=== PATIENT | male | born 1995 | race Caucasian/White ===

== ENCOUNTER 2021-09-28 18:57 | Emergency (ER) | payer MEDICARE, MEDICAID, SELFPAY ==
[2021-09-28 19:08] VITALS: BP 119/71; PULSE 108; RESP 18; TEMP 37.2; O2SAT 99; BMI 22.0
--- NOTE | 2021-09-28 19:28 | ED_ITS ---
HPI - Psych General Chief Complaint: Psychiatric Symptoms Stated Complaint: crisis Time Seen by Provider: 09/28/21 19:17 Source: patient Limitations: altered mental status (Intoxication) History of Present Illness HPI Narrative: This is a 26-year-old male who reports wanting to kill himself. Patient admits alcohol use. The patient will not disclose any specific plan. History is limited due to the patient's intoxication and lack of cooperation. Psychiatric staff stated that the patient reported that he was suicidal because he could not see his boyfriend. Related Data Home Medications Medication Instructions Recorded Confirmed bupropion HCl 150 mg 24 hr tablet, 150 mg PO QAM 09/28/21 extended release (Wellbutrin XL) hydroxyzine HCl 10 mg tablet 10 mg PO TID PRN 09/28/21 Allergies Allergy/AdvReac Type Severity Reaction Status Date / Time latex Allergy Mild rash, hives Verified 09/28/21 15:36 Review of Systems Constitutional: Constitutional: Denies fatigue and Denies fever(s) Cardiovascular: Cardiovascular: Reports no additional cardiovascular complaints Respiratory: Respiratory: Reports no additional respiratory complaints Gastrointestinal: Gastrointestinal: Reports no additional gastrointestinal complaints Psychiatric: Psychiatric: Reports suicidal ideation Endocrine: Endocrine: Denies fatigue PMFSH Social History Social History Patient Tobacco Use Status: Current everyday Tobacco user Advance Directives: No Advance Directives Information Provided: No Physical Exam Vital Signs: Vital Signs: Last Vital Signs Temp 98.9 F 09/28/21 19:08 Pulse 108 H 09/28/21 19:08 Resp 18 09/28/21 19:08 BP 119/71 09/28/21 19:08 Pulse Ox 99 09/28/21 19:08 Body Mass Index 22.0 Const: Other: Patient walked out of the room when I was about to enter, [facility] direct eye contact and dancing, waving 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 Patient does not give reliable answers to questions due to his level of intoxication. General: healthy appearing HENMT: Head: Yes normal to inspection Ears: hearing grossly normal bilaterally General nose exam: Normal external nose present Eyes: General: appearance normal, both eyes and all related structures Resp: Effort & Inspection: normal respiratory effort and able to speak in complete sentences Auscultation: clear to auscultation bilaterally Cardio: Rate: regular rate Rhythm: regular rhythm Heart sounds: S1 normal heart sound present and S2 normal heart sound present Psych: Appearance: grossly normal (Long hair, effeminate/transgender appearance) Speech and movement: Normal speech and movement present Affect: Animated affect present, Hostile affect present and Ecstatic affect present MDM - Psych MDM Narrative Medical decision making narrative: Patient with alcohol intoxication, reported suicidal ideation. Patient is expansive, dancing in gesticulating, needs re- evaluation when he is sober. Patient is being signed out to Dr. Corrine Thompson at change of shift Lab Data Result diagrams: 09/28/21 19:31 09/28/21 19:31 Labs: Lab Results 09/28/21 09/28/21 09/28/21 Range/Units 19:19 19:24 19:31 WBC (4.8-10.8) X10*3/uL RBC (4.60-5.80) X10*6/uL Hgb (14.0-18.0) g/dl Hct (42.0-52.0) % MCV (80.0-98.0) fL MCH (27.0-33.0) pg MCHC (31.0-36.0) g/dl RDW (11.0-16.0) % Plt Count (160-400) X10*3/uL MPV (9.4-12.4) fL Immature Gran % (Auto) (0.0-0.4) % Neut % (Auto) (45-73) % Lymph % (Auto) (20-40) % [place] % (Auto) (2-11) % Eos % (Auto) (0-4) % Baso % (Auto) (0-2) % Lymph # (Auto) (1.2-4.9) X10*3/uL [place] # (Auto) (0.1-1.2) X10*3/uL Eos # (Auto) (0.0-0.4) X10*3/uL Baso # (Auto) (0.0-0.2) X10*3/uL Abs Immat Gran (auto) (0.00-0.03) X10*3/uL Absolute Neuts (auto) (2.0-8.3) x10*3/uL Absolute Nucleated RBC (0.0-0.012) X10*3/uL Nucleated RBC % (auto) (0.0-0.2) /100WBC Sodium 145 (135-145) mmol/L Potassium 4.2 (3.3-5.1) mmol/L Chloride 110 H (96-108) mmol/L Carbon Dioxide 25 (22-29) mmol/L Anion Gap 14 (12-20) BUN 8 L (9-16) mg/dL Creatinine 0.86 (0.5-1.4) mg/dL Estim Creat Clear Calc 121.0 Estimated GFR > 60 Random Glucose 88 (60-115) mg/dL Calcium 9.5 (8.4-10.2) mg/dL Urine Opiates Screen Not Detected (Not Detect) Urine Fentanyl Screen Not Detected (Not Detect) Ur Barbiturates Screen Not Detected (Not Detect) Ur Phencyclidine Scrn Not Detected (Not Detect) Ur Amphetamines Screen Not Detected (Not Detect) U Benzodiazepines Scrn Not Detected (Not Detect) Urine Cocaine Screen Not Detected (Not Detect) U Marijuana (THC) Screen Not Detected (Not Detect) Ethyl Alcohol mg/dL COVID-19 ([facility]TA) Negative (Negative) COVID-19 Clin Com See Note 09/28/21 09/28/21 Range/Units 19:31 19:31 WBC 7.3 (4.8-10.8) X10*3/uL RBC 4.94 (4.60-5.80) X10*6/uL Hgb 15.0 (14.0-18.0) g/dl Hct 44.0 (42.0-52.0) % MCV 89.1 (80.0-98.0) fL MCH 30.4 (27.0-33.0) pg MCHC 34.1 (31.0-36.0) g/dl RDW 14.2 (11.0-16.0) % Plt Count 308 (160-400) X10*3/uL MPV 10.4 (9.4-12.4) fL Immature Gran % (Auto) 0.4 (0.0-0.4) % Neut % (Auto) 57.3 (45-73) % Lymph % (Auto) 34.9 (20-40) % [place] % (Auto) 6.0 (2-11) % Eos % (Auto) 1.0 (0-4) % Baso % (Auto) 0.4 (0-2) % Lymph # (Auto) 2.6 (1.2-4.9) X10*3/uL [place] # (Auto) 0.4 (0.1-1.2) X10*3/uL Eos # (Auto) 0.1 (0.0-0.4) X10*3/uL Baso # (Auto) 0.0 (0.0-0.2) X10*3/uL Abs Immat Gran (auto) 0.03 (0.00-0.03) X10*3/uL Absolute Neuts (auto) 4.2 (2.0-8.3) x10*3/uL Absolute Nucleated RBC 0.000 (0.0-0.012) X10*3/uL Nucleated RBC % (auto) 0.0 (0.0-0.2) /100WBC Sodium (135-145) mmol/L Potassium (3.3-5.1) mmol/L Chloride (96-108) mmol/L Carbon Dioxide (22-29) mmol/L Anion Gap (12-20) BUN (9-16) mg/dL Creatinine (0.5-1.4) mg/dL Estim Creat Clear Calc Estimated GFR Random Glucose (60-115) mg/dL Calcium (8.4-10.2) mg/dL Urine Opiates Screen (Not Detect) Urine Fentanyl Screen (Not Detect) Ur Barbiturates Screen (Not Detect) Ur Phencyclidine Scrn (Not Detect) Ur Amphetamines Screen (Not Detect) U Benzodiazepines Scrn (Not Detect) Urine Cocaine Screen (Not Detect) U Marijuana (THC) Screen (Not Detect) Ethyl Alcohol 221 mg/dL COVID-19 ([facility]TA) (Negative) COVID-19 Clin Com Discharge Plan Discharge Clinical Impression: Alcohol intoxication, Suicidal ideation Patient Disposition: Still a Patient Prescriptions: No Action bupropion HCl [Wellbutrin XL] 150 mg tablet extended release 24 hr 150 mg PO QAM RF: 0 hydroxyzine HCl 10 mg tablet 10 mg PO TID PRNRF: 0
[2021-09-28 19:37] LABS: MANUAL DIFF FLAG NO
[2021-09-28 19:49] LABS: Ethanol 221 mg/dL
[2021-09-28 19:50] LABS: Anion Gap 14 (12-20); Basophils Percent Auto 0.4 % (0-2); Blood Urea Nitrogen 8 mg/dL (9-16); Calcium 9.5 mg/dL (8.4-10.2); Carbon Dioxide 25 mmol/L (22-29); Chloride 110 mmol/L (96-108); Eosinophils Absolute Auto 0.1 X10*3/uL (0.0-0.4); Estimated Glomerular Filt Rate > 60; Glucose Random 88 mg/dL (60-115); Imm Gran Abs Auto 0.03 X10*3/uL (0.00-0.03); Imm Gran Pct Auto 0.4 % (0.0-0.4); Lymphocytes Absolute Auto 2.6 X10*3/uL (1.2-4.9); Lymphocytes Percent Auto 34.9 % (20-40); Mean Corpuscular HGB Conc 34.1 g/dl (31.0-36.0); Mean Corpuscular Hemoglobin 30.4 pg (27.0-33.0); Mean Corpuscular Volume 89.1 fL (80.0-98.0); Mean Platelet Volume 10.4 fL (9.4-12.4); Monocytes Absolute Auto 0.4 X10*3/uL (0.1-1.2); Neutrophils Absolute Auto 4.2 x10*3/uL (2.0-8.3); Neutrophils Percent Auto 57.3 % (45-73); Platelet Count 308 X10*3/uL (160-400); Potassium 4.2 mmol/L (3.3-5.1); Red Blood Count 4.94 X10*6/uL (4.60-5.80); Red Cell Distribution Width 14.2 % (11.0-16.0); Sodium 145 mmol/L (135-145); White Blood Count 7.3 X10*3/uL (4.8-10.8)
[2021-09-28 19:55] LABS: COVID-19 Test Negative (Negative)
[2021-09-28 20:08] LABS: Amphetamine Screen Urine Not Detected (Not Detect); Barbiturates, Urine Not Detected (Not Detect); Benzodiazepines Screen Urine Not Detected (Not Detect); Cannabinoid Screen Urine Not Detected (Not Detect); Cocaine Screen Urine Not Detected (Not Detect); Fentanyl, urine Not Detected (Not Detect); Opiate Screen Urine Not Detected (Not Detect); Phencyclidine Screen Urine Not Detected (Not Detect)
--- NOTE | 2021-09-29 00:52 | PC.NURSE ---
[facility] referral completed/confirmed, patient will be evaluated in the morning, patient is in bed appears sleeping, no distress observed/reported, will continue to monitor.
--- NOTE | 2021-09-29 06:17 | PC.NURSE ---
Patient slept through the night, patient was up x 2 for bathroom use and back, patient reported he cant remember how he got into ambulance, stated, I drank a lot , patient was informed that he will be seeing N crises clinician in the morning due to suicidal statement he made to EMS, VSS, will continue to monitor.
[2021-09-29 06:49] VITALS: BP 121/68; PULSE 69; RESP 16; TEMP 36.8; O2SAT 98
--- NOTE | 2021-09-29 07:49 | PC.NURSE ---
pt seen [facility] this morning, denies SI/HI to nurse, currently complaining of mouth abscess, upon investigation by nurse no signs of abscess, will inform MD and continue to monitor
[2021-09-29] MEDS: Penicillin V Potassium 250 MG TABLET 500 MG PO ×4 (09:29→22:19)
[2021-09-29 10:05] LABS: Ethanol < 10 mg/dL
[2021-09-29 10:52] VITALS: BP 130/65; PULSE 70; TEMP 36.7; O2SAT 98
[2021-09-30 06:13] VITALS: BP 120/72; PULSE 72; RESP 16; TEMP 36.9; O2SAT 99
--- NOTE | 2021-09-30 06:14 | PC.NURSE ---
Patient slept through the night, no distress observed/reported, patient is being treated for dental infection with penicillins, patient compliant with medication, behavior appropriate and mostly isolated in his room, Patient will revaluated by [facility] in the morning, VSS, will continue to monitor.
--- NOTE | 2021-09-30 07:14 | PC.NURSE ---
patient appears in no distress at present, appears asleep respirations are even and unlabored.
[2021-09-30] MEDS: Penicillin V Potassium 250 MG TABLET 500 MG PO ×3 (09:56→17:59)
--- NOTE | 2021-09-30 18:08 | PC.NURSE ---
Since this RN arrival at 3pm. Pt has been pleasant, interactive with other patients. taking meds and food/drink well. awaits transport to respite.
[2021-09-30 18:16] VITALS: BP 126/78; PULSE 68; TEMP 36.8; O2SAT 99
--- NOTE | 2021-09-30 19:10 | PC.NURSE ---
Ambulatory at discharge. SKin pwd. Awaits ride to respite in [place]> Calm and cooperative
== END 2021-09-30 19:10 ==
PROVIDERS: Physician Assistant; Emergency Provider Emergency Medicine
DX: F10.129 Alcohol abuse with intoxication, unspecified (principal); Y90.7 Blood alcohol level of 200-239 mg/100 ml; R45.851 Suicidal ideations; K04.7 Periapical abscess without sinus; Z20.822 Contact with and (suspected) exposure to COVID-19
CPT/HCPCS: 36415; 80048; 80307; 82077; 85025; 87635; 99284; 99285

== ENCOUNTER 2023-06-07 09:48 | Observation (INO) | payer MEDICARE, MEDICAID, SELFPAY ==
[2023-06-07 09:56] VITALS: BP 119/97; PULSE 134; RESP 20; TEMP 37.2; O2SAT 98; BMI 25.8
[2023-06-07] MEDS: HaloperidoL 5 MG TABLET 10 MG PO (10:10)
--- NOTE | 2023-06-07 10:10 | ED_ITS ---
HPI - Psych General Chief Complaint: Psychiatric Symptoms Stated Complaint: SEC 12 BY [facility]D,SI,ALESIA PER EMS Time Seen by Provider: 06/07/23 10:04 Source: patient, EMS and RN notes reviewed Mode of arrival: EMS Limitations: other (Patient's manic) History of Present Illness HPI Narrative: 27-year-old male brought to the emergency department by ambulance on a Section 12 which was filled out by police. The patient was wandering around in [place]. The patient was manic. Patient was placed on a Section 12 and bro ught to the emergency department. The patient has pressured speech and flight of ideas. He told me that he has a history of depression, anxiety and suicidal ideation however he would not answer the question while there he was suicidal or homicidal at this time. The patient does appear to be very manic. I did discuss giving him medications to help him calm down and he requested Haldol and Ativan orally. Therefore I ordered Haldol 10 mg, Ativan 2 mg and Benadryl 50 mg orally to treat his alesia. Patient told me that he did take stimulants including methamphetamine, drinking [employer] and Dr. Brennan Related Data Home Medications Medication Instructions Recorded Confirmed bupropion HCl 150 mg 24 hr tablet, 150 mg PO QAM 09/28/21 09/29/21 extended release (Wellbutrin XL) hydroxyzine HCl 10 mg tablet 10 mg PO TID PRN Anxiety 09/28/21 09/29/21 Previous Rx's Medication Instructions Recorded ibuprofen 600 mg tablet 600 mg PO Q8H PRN pain #20 tabs 09/30/21 penicillin V potassium 500 mg 500 mg PO QID 7 days #28 tabs 09/30/21 tablet Allergies Allergy/AdvReac Type Severity Reaction Status Date / Time latex Allergy Mild rash, hives Verified 09/28/21 15:36 Review of Systems Review of Systems: Yes Unobtainable due to mental status PMFSH [facility] Narrative: Past medical history: Anxiety, depression, suicidal ideation, alcohol use disorder. Social history: Unobtainable Social History Social History Patient Tobacco Use Status: Current everyday Tobacco user Smoked in Last 30 Days: Yes Use of substances other than those prescribed or required for medical reasons: Yes Substance Use Type: Marijuana and Methamphetamine Last Used Substance: Just Prior to Admission Advance Directives: No Advance Directives Information Provided: Yes Physical Exam Vital Signs: Vital Signs: Last Vital Signs Temp 98.6 F 06/07/23 12:42 Pulse 116 H 06/07/23 12:42 Resp 20 06/07/23 09:56 BP 125/89 06/07/23 12:42 Pulse Ox 99 06/07/23 12:42 O2 Del Method Room Air 06/07/23 12:42 BMI result Body Mass Index 25.8 Vital signs did reveal an elevated pulse, most likely related to the patient's alesia Const: Other: Awake, alert, male patient, patient is very manic, has flight of ideas, is gesticulating with his hands, pacing around the room HEENT: Head: Yes normal to inspection, Yes normocephalic and Yes atraumatic Ears: external ears normal General nose exam: Normal external nose present Face and sinus: Yes normal facial exam Mouth: Normal oral and palatal mucosa present Throat: Yes posterior oropharynx normal Eyes: General: appearance normal, both eyes and all related structures Pupils: Equal, round and reactive pupils present Neck: Neck: Yes normal visual inspection, Yes no lymphadenopathy, Yes trachea midline and Yes supple Chest: Chest palpation & inspection: normal inspection of the chest and normal palpation of entire chest wall Resp: Effort & Inspection: normal respiratory effort and able to speak in complete sentences Auscultation: clear to auscultation bilaterally Cardio: Other: Tachycardia, normal S1-S2, no murmurs GI: Inspection: Yes normal to inspection Palpation (GI): Soft to palpation, nontender and no guarding Auscultation: normal bowel sounds : General: Yes no CVA tenderness Back/Spine/Pelvis: Back: no CVA tenderness Skin: General skin exam: no rashes or lesions noted Neuro: Cranial nerves: Yes CN's II-XII intact bilaterally and Yes Equal, round and reactive pupils present Cognition (Neuro): normal cognition Motor exam (neuro): 5/5 motor strength present throughout Extrem: General: Yes normal to inspection Psych: Other: Patient is manic, has flight of ideas, he is pacing around the room, he did tell me that he was suicidal in the past but would not answer the question whether he was suicidal at this time. Medications Administered Discontinued Medications Generic Name Dose Route Start Last Admin Trade Name Freq PRN Reason Stop Dose Admin Diphenhydramine HCl 50 mg 06/07/23 10:10 06/07/23 10:15 Diphenhydramine Hcl 25 Mg Capsule PO 06/07/23 10:11 50 mg ONCE ONE Administration Haloperidol 10 mg 06/07/23 10:10 06/07/23 10:10 Haloperidol 5 Mg Tablet PO 06/07/23 10:11 10 mg ONCE ONE Administration Sodium Chloride 1,000 mls @ 999 mls/hr 06/07/23 15:20 06/07/23 16:55 Ns IV 06/07/23 16:20 999 mls/hr .Q1H1M STA Administration Sodium Chloride 1,000 mls @ 999 mls/hr 06/07/23 15:21 06/07/23 16:55 Ns IV 06/07/23 16:21 999 mls/hr .Q1H1M STA Administration Lorazepam 2 mg 06/07/23 10:10 06/07/23 10:15 Lorazepam 1 Mg Tablet PO 06/07/23 10:11 2 mg ONCE STA Administration Lorazepam 2 mg 06/07/23 10:49 06/07/23 10:56 Lorazepam 1 Mg Tablet PO 06/07/23 10:50 2 mg ONCE STA Administration Metoprolol Tartrate 50 mg 06/07/23 10:49 06/07/23 10:55 Metoprolol Tartrate 50 Mg Tablet PO 06/07/23 10:50 50 mg ONCE ONE Administration Protocol Medical Decision Making Medical Decision Making MDM Narrative: 27-year-old male with history of depression, anxiety, suicidal ideation, alcohol use disorder who was brought to emergency department by ambulance on a Section 12 placed by the police for alesia. Patient does appear to be manic. I did discuss medications with the patient to help with his alesia and he requested Haldol and Ativan. The patient was ordered to get Haldol 10 mg orally, Ativan 2 mg orally and Benadryl 50 mg orally for his alesia. Did order laboratory evaluation to include CBC, CMP, COVID-19, TSH with reflex T4 urine drug screen, blood alcohol level. The patient will be kept in the emergency department [facility] until he can be evaluated by our care team 1050: The patient became diaphoretic. I did evaluate him. He is awake, he is alert, does not to be in distress but he is diaphoretic. Patient's heart rate is 160. I will obtain an EKG. I ordered another dose of Ativan 2 mg orally and metoprolol 50 mg orally to control his rate. Of note, the patient states he did use methamphetamine last night and this could be the cause of his tachycardia. 1523: My interpretation patient's laboratory evaluation is as follows: WBC elevated 14,400-most likely secondary to agitation. BUN and creatinine were elevated 27 and 2.55 consistent with acute kidney injury possibly secondary to rha bdomyolysis -will add a CK. Patient's potassium was elevated at 6.0-EKG does not reveal elevated T-waves therefore I will repeat the potassium prior to treatment. Bicarb low 20. Alk-phos elevated 133. TSH normal. Alcohol below detectable limits. Drug screen pending urine collection. Given these laboratory abnormalities, the patient will be transferred from the emergency department [facility] to the emergency department for treatment with IV fluids to see if this improves his laboratory abnormalities. 1707: At the end of my shift, patient's care was turned over to my colleague, Dr. Corrine Thompson. Differential Diagnosis Differential diagnosis includes but is not limited to depression, anxiety, alesia, alcohol use disorder, electrolyte abnormality, hyperthyroidism, drug use, rhabdomyolysi Admission/Observation Consideration of admission/observation: Escalation of care including admission/observation considered Lab Data MDM Lab Attestation statement: I reviewed the patient's lab results. 06/07/23 14:05 06/07/23 14:05 Labs: Lab Results 06/07/23 06/07/23 06/07/23 Range/Units 14:05 14:05 14:05 WBC 14.4 H (4.8-10.8) X10*3/uL RBC 5.63 (4.60-5.80) X10*6/uL Hgb 17.2 (14.0-18.0) g/dl Hct 50.4 (42.0-52.0) % MCV 89.5 (80.0-98.0) fL MCH 30.6 (27.0-33.0) pg MCHC 34.1 (31.0-36.0) g/dl RDW 13.7 (11.0-16.0) % Plt Count 331 (160-400) X10*3/uL MPV 9.9 (9.4-12.4) fL Immature Gran % (Auto) 0.8 H (0.0-0.4) % Neut % (Auto) 70.3 (45-73) % Lymph % (Auto) 17.6 L (20-40) % [place] % (Auto) 10.6 (2-11) % Eos % (Auto) 0.1 (0-4) % Baso % (Auto) 0.6 (0-2) % Lymph # (Auto) 2.5 (1.2-4.9) X10*3/uL [place] # (Auto) 1.5 H (0.1-1.2) X10*3/uL Eos # (Auto) 0.0 (0.0-0.4) X10*3/uL Baso # (Auto) 0.1 (0.0-0.2) X10*3/uL Abs Immat Gran (auto) 0.11 H (0.00-0.03) X10*3/uL Absolute Neuts (auto) 10.1 H (2.0-8.3) x10*3/uL Absolute Nucleated RBC 0.000 (0.0-0.012) X10*3/uL Nucleated RBC % (auto) 0.0 (0.0-0.2) /100WBC Smear Tech's Comments VERIFIED Sodium 136 (135-145) mmol/L Potassium 6.0 H* D (3.3-5.1) mmol/L Chloride 99 (96-108) mmol/L Carbon Dioxide 20 L (22-29) mmol/L Anion Gap 23 H (12-20) BUN 27 H (9-16) mg/dL Creatinine 2.55 H (0.5-1.4) mg/dL Estim Creat Clear Calc 42.0 Estimated GFR 30 POC Glucose (60-115) mg/dL Random Glucose 82 (60-115) mg/dL Calcium 10.8 H D (8.4-10.2) mg/dL Total Bilirubin 1.1 H (0.0-1.0) mg/dL AST 31 (5-37) U/L ALT 24 (0-40) U/L Alkaline Phosphatase 133 H (39-117) U/L Total Creatine Kinase 725 H (38-174) U/L Total Protein 9.3 H (6.5-8.0) g/dL Albumin 5.4 H (3.5-5.0) g/dL TSH 3.40 (0.32-4.0) uIU/mL Ethyl Alcohol < 10 mg/dL COVID-19 ([facility]TA) Negative (Negative) COVID-19 Clin Com See Note 06/07/23 Range/Units 16:56 WBC (4.8-10.8) X10*3/uL RBC (4.60-5.80) X10*6/uL Hgb (14.0-18.0) g/dl Hct (42.0-52.0) % MCV (80.0-98.0) fL MCH (27.0-33.0) pg MCHC (31.0-36.0) g/dl RDW (11.0-16.0) % Plt Count (160-400) X10*3/uL MPV (9.4-12.4) fL Immature Gran % (Auto) (0.0-0.4) % Neut % (Auto) (45-73) % Lymph % (Auto) (20-40) % [place] % (Auto) (2-11) % Eos % (Auto) (0-4) % Baso % (Auto) (0-2) % Lymph # (Auto) (1.2-4.9) X10*3/uL [place] # (Auto) (0.1-1.2) X10*3/uL Eos # (Auto) (0.0-0.4) X10*3/uL Baso # (Auto) (0.0-0.2) X10*3/uL Abs Immat Gran (auto) (0.00-0.03) X10*3/uL Absolute Neuts (auto) (2.0-8.3) x10*3/uL Absolute Nucleated RBC (0.0-0.012) X10*3/uL Nucleated RBC % (auto) (0.0-0.2) /100WBC Smear Tech's Comments Sodium (135-145) mmol/L Potassium (3.3-5.1) mmol/L Chloride (96-108) mmol/L Carbon Dioxide (22-29) mmol/L Anion Gap (12-20) BUN (9-16) mg/dL Creatinine (0.5-1.4) mg/dL Estim Creat Clear Calc Estimated GFR POC Glucose 62 (60-115) mg/dL Random Glucose (60-115) mg/dL Calcium (8.4-10.2) mg/dL Total Bilirubin (0.0-1.0) mg/dL AST (5-37) U/L ALT (0-40) U/L Alkaline Phosphatase (39-117) U/L Total Creatine Kinase (38-174) U/L Total Protein (6.5-8.0) g/dL Albumin (3.5-5.0) g/dL TSH (0.32-4.0) uIU/mL Ethyl Alcohol mg/dL COVID-19 (NETTA) (Negative) COVID-19 Clin Com Independent Interpretation I performed an independent interpretation of an: EKG Interpretation: My interpretation patient's 12 EKG done at 14:15 hours is as follows: Sinus rhythm rate of 91, normal IN interval, QRS duration and QTC interval, no ST segment elevation, no ST segment depression, no T-wave abnormalities specifically no he T-waves. No old EKG for comparison Independent Historian Clinical information obtained from an independent historian. History obtained from or confirmed by: EMS and Other (ED nurse) External Record Review External record reviewed: Other (Section 12 by police) Discharge Plan Discharge Clinical Impression: Alesia Prescriptions: No Action penicillin V potassium 500 mg tablet 500 mg PO QID 7 Days Qty: 28 0RF ibuprofen 600 mg tablet 600 mg PO Q8H PRN (Reason: pain) Qty: 20 0RF bupropion HCl [Wellbutrin XL] 150 mg tablet extended release 24 hr 150 mg PO QAM hydroxyzine HCl 10 mg tablet 10 mg PO TID PRN (Reason: Anxiety) Interventions: [place]-Suicide Risk Severity Scale Last Done: 06/07/23 12:41
[2023-06-07] MEDS: diphenhydrAMINE HCL 25 MG CAPSULE 50 MG PO (10:15)
[2023-06-07] MEDS: LORazepam 1 MG TABLET 2 MG PO ×2 (10:15→10:56)
--- NOTE | 2023-06-07 10:50 | ECG_ITS ---
Test Reason : CHECK PROLONG QT Blood Pressure : / mmHG Vent. Rate : 091 BPM Atrial Rate : 091 BPM P-R Int : 170 ms QRS Dur : 090 ms QT Int : 354 ms P-R-T Axes : 057 081 035 degrees QTc Int : 435 ms Normal sinus rhythm Normal ECG No previous ECGs available Referred By: Wili Castle Electronically Signed By:UTE NULL MD
[2023-06-07] MEDS: Metoprolol Tartrate 50 MG TABLET PO (10:55)
--- NOTE | 2023-06-07 11:02 | PC.NURSE ---
Pt presented with alesia, delusional thoughts, word salad, diaphoretic, extremely difficult to redirect, SI statements, Provider made aware and assessed Pt.
[2023-06-07 12:41] VITALS: BP 125/87; PULSE 117
[2023-06-07 12:42] VITALS: BP 125/89; PULSE 116; TEMP 37; O2SAT 99
--- NOTE | 2023-06-07 13:13 | PC.NURSE ---
Pt noted to have elevated HR and diaphoretic, metoprolol administered with positive effect. Pt noted to resting comfortably, no pain or discomfort noted.
[2023-06-07 14:14] LABS: Basophils Absolute Auto 0.1 X10*3/uL (0.0-0.2); Basophils Percent Auto 0.6 % (0-2); Eosinophils Percent Auto 0.1 % (0-4); Hematocrit 50.4 % (42.0-52.0); Hemoglobin 17.2 g/dl (14.0-18.0); Imm Gran Abs Auto 0.11 X10*3/uL (0.00-0.03); Imm Gran Pct Auto 0.8 % (0.0-0.4); Lymphocytes Absolute Auto 2.5 X10*3/uL (1.2-4.9); Lymphocytes Percent Auto 17.6 % (20-40); MANUAL DIFF FLAG SCAN; Mean Corpuscular HGB Conc 34.1 g/dl (31.0-36.0); Mean Corpuscular Hemoglobin 30.6 pg (27.0-33.0); Mean Corpuscular Volume 89.5 fL (80.0-98.0); Mean Platelet Volume 9.9 fL (9.4-12.4); Monocytes Absolute Auto 1.5 X10*3/uL (0.1-1.2); Monocytes Percent Auto 10.6 % (2-11); Neutrophils Absolute Auto 10.1 x10*3/uL (2.0-8.3); Neutrophils Percent Auto 70.3 % (45-73); Platelet Count 331 X10*3/uL (160-400); Red Blood Count 5.63 X10*6/uL (4.60-5.80); Red Cell Distribution Width 13.7 % (11.0-16.0); SCAN SMEAR FLAG 1; White Blood Count 14.4 X10*3/uL (4.8-10.8)
[2023-06-07 14:27] LABS: COVID-19 Test Negative (Negative); IDNOW Serial# BCCEAD1C
[2023-06-07 14:41] LABS: Alanine Aminotransferase 24 U/L (0-40); Albumin Level 5.4 g/dL (3.5-5.0); Alkaline Phosphatase 133 U/L (39-117); Anion Gap 23 (12-20); Aspartate Amino Transferase 31 U/L (5-37); Bilirubin Total 1.1 mg/dL (0.0-1.0); Blood Urea Nitrogen 27 mg/dL (9-16); Calcium 10.8 mg/dL (8.4-10.2); Carbon Dioxide 20 mmol/L (22-29); Chloride 99 mmol/L (96-108); Estimated Glomerular Filt Rate 30; Ethanol < 10 mg/dL; Glucose Random 82 mg/dL (60-115); Sodium 136 mmol/L (135-145); Total Protein 9.3 g/dL (6.5-8.0)
[2023-06-07 14:44] LABS: SLIDE REVIEW VERIFIED
[2023-06-07] MEDS: 0.9 % Sodium Chloride 1,000 ML 999 ML IV ×2 (16:55)
[2023-06-07 17:02] LABS: Glucose, Whole Blood 62 mg/dL (60-115)
[2023-06-07 17:18] LABS: Anion Gap 20 (12-20); Blood Urea Nitrogen 33 mg/dL (9-16); Carbon Dioxide 21 mmol/L (22-29); Chloride 101 mmol/L (96-108); Creatinine Clr Calc Pharmacy 40.9; Estimated Glomerular Filt Rate 29; Glucose Random 76 mg/dL (60-115); Potassium 4.8 mmol/L (3.3-5.1); Sodium 137 mmol/L (135-145)
[2023-06-07 17:39] LABS: Troponin-I High Sensitivity 18.1 ng/L (<3.5-35.0)
[2023-06-07 18:38] VITALS: BP 96/58; PULSE 95; RESP 16; TEMP 36.9; O2SAT 99
--- NOTE | 2023-06-07 20:00 | PC.NURSE ---
This senior writer assumed care of this Pt at 1900. Pt appears to be sleeping awakens upon verbal stimuli. Pt Calm and cooperative, states I'm glad they are checking my mental health , denies SI/HI, AH/VH. Blood work redrawn and sent to lab. 1:1 sitter at bedside.
[2023-06-07 20:25] LABS: B Type Natriuretic Peptide 14 pg/mL (<100)
[2023-06-07 20:35] LABS: Anion Gap 18 (12-20); Blood Urea Nitrogen 34 mg/dL (9-16); Carbon Dioxide 19 mmol/L (22-29); Chloride 106 mmol/L (96-108); Creatinine Clr Calc Pharmacy 55.9; Estimated Glomerular Filt Rate 42; Glucose Random 93 mg/dL (60-115); Potassium 3.5 mmol/L (3.3-5.1); Sodium 139 mmol/L (135-145)
--- NOTE | 2023-06-07 21:12 | P.HPHOSP_ITS ---
History of Present Illness Date of Service: 06/07/23 Chief Complaint: Alesia This is a 27-year-old male with no significant past medical history mood disorders possibly bipolar, comes into the hospital being delusional, hyperverbal, manic, word salad, and making SI comments. Patient is right now sleeping, difficult to arouse, and therefore I am unable to get history from the patient history is obtained mostly from ED physician. patient comes in after section 12 was filed by police. The patient was found wandering around in [place], he was manic, he had pressured speech flight of ideas, stated history of depression anxiety and suicidal ideation. He received Haldol and Ativan in the ED. On further workup of patient found to have MILAGRO. He received 2 L of fluid with persistent MILAGRO, therefore we are asked to admit patient. Labs are otherwise significant for CPK of 725, alcohol level negative, Vitals reviewed unremarkable Patient will be admitted for further management Review of Systems Review of Systems: Yes Unobtainable due to mental status PMFSH Medical History Depression with anxiety Suicidal ideation Social History Patient Tobacco Use Status: Current everyday Tobacco user Tobacco use type: Cigarette Cigarette Packs Per Day: 0.8 Cigarettes Per Day: 3 Years Smoked: 15 Smoked in Last 30 Days: Yes Patient Interested in Nicotine Replacement: No Patient Given Instructions on How to Stop Smoking: No (refused) Second Hand Smoke Exposure: Yes Use of substances other than those prescribed or required for medical reasons: Yes Substance Use Type: Marijuana and Methamphetamine Last Used Substance: Just Prior to Admission Advance Directives: No Advance Directives Information Provided: Yes Meds Allergies Allergy/AdvReac Type Severity Reaction Status Date / Time latex Allergy Mild rash, hives Verified 09/28/21 15:36 Home Medications Medication Instructions Recorded Confirmed Last Taken Type aripiprazole lauroxil 662 mg/2.4 662 mg IM QMONTH 06/07/23 06/07/23 Unknown History mL suspension, ext.rel. IM syringe (Aristada) oxcarbazepine 300 mg tablet 300 mg PO BID 06/07/23 06/07/23 Unknown History prazosin 5 mg capsule 5 mg PO BEDTIME 06/07/23 06/07/23 Unknown History Physical Exam Vital Signs and Narrative: Vital Signs: Last Vital Signs Temp 98.5 F 06/07/23 18:38 Pulse 95 06/07/23 18:38 Resp 16 06/07/23 18:38 BP 96/58 L 06/07/23 18:38 Pulse Ox 99 06/07/23 18:38 O2 Del Method Room Air 06/07/23 18:38 BMI result Body Mass Index 25.8 Const: Other: Sleeping, but arousable General: cooperative and no acute distress Eyes: General: appearance normal, both eyes and all related structures Resp: Effort & Inspection: normal respiratory effort Auscultation: clear to auscultation bilaterally Cardio: Rate: regular rate Rhythm: regular rhythm GI: Palpation (GI): Soft to palpation Auscultation: normal bowel sounds Skin: General skin exam: no rashes or lesions noted Extrem: General: Yes normal to inspection and Yes no pedal edema Results Labs 06/07/23 14:05 06/07/23 19:49 Labs: Laboratory Results - last 24 hr 06/07/23 06/07/23 06/07/23 14:05 14:05 14:05 MCV 89.5 MCH 30.6 MCHC 34.1 RDW 13.7 Plt Count 331 MPV 9.9 Immature Gran % (Auto) 0.8 H Neut % (Auto) 70.3 Lymph % (Auto) 17.6 L Grayson % (Auto) 10.6 Eos % (Auto) 0.1 Baso % (Auto) 0.6 Lymph # (Auto) 2.5 Grayson # (Auto) 1.5 H Eos # (Auto) 0.0 Baso # (Auto) 0.1 Abs Immat Gran (auto) 0.11 H Absolute Neuts (auto) 10.1 H Absolute Nucleated RBC 0.000 Nucleated RBC % (auto) 0.0 Smear Tech's Comments VERIFIED Anion Gap 23 H Estim Creat Clear Calc 42.0 Estimated GFR 30 POC Glucose Random Glucose 82 Calcium 10.8 H D Total Bilirubin 1.1 H AST 31 ALT 24 Alkaline Phosphatase 133 H Total Creatine Kinase 725 H B-Natriuretic Peptide Total Protein 9.3 H Albumin 5.4 H TSH 3.40 Ethyl Alcohol < 10 COVID-19 (NETTA) Negative COVID-19 Clin Com See Note 07/06/07/23 06/07/23 16:55 16:56 19:49 MCV MCH MCHC RDW Plt Count MPV Immature Gran % (Auto) Neut % (Auto) Lymph % (Auto) Grayson % (Auto) Eos % (Auto) Baso % (Auto) Lymph # (Auto) Grayson # (Auto) Eos # (Auto) Baso # (Auto) Abs Immat Gran (auto) Absolute Neuts (auto) Absolute Nucleated RBC Nucleated RBC % (auto) Smear Tech's Comments Anion Gap 20 18 Estim Creat Clear Calc 40.9 55.9 Estimated GFR 29 42 POC Glucose 62 Random Glucose 76 93 Calcium 10.0 D 9.0 D Total Bilirubin AST ALT Alkaline Phosphatase Total Creatine Kinase B-Natriuretic Peptide Total Protein Albumin TSH Ethyl Alcohol COVID-19 (NETTA) COVID-[place] Com 06/07/23 19:49 MCV MCH MCHC RDW Plt Count MPV Immature Gran % (Auto) Neut % (Auto) Lymph % (Auto) Grayson % (Auto) Eos % (Auto) Baso % (Auto) Lymph # (Auto) Grayson # (Auto) Eos # (Auto) Baso # (Auto) Abs Immat Gran (auto) Absolute Neuts (auto) Absolute Nucleated RBC Nucleated RBC % (auto) Smear Tech's Comments Anion Gap Estim Creat Clear Calc Estimated GFR POC Glucose Random Glucose Calcium Total Bilirubin AST ALT Alkaline Phosphatase Total Creatine Kinase B-Natriuretic Peptide 14 Total Protein Albumin TSH Ethyl Alcohol COVID-19 (NETTA) COVID-19 [place] Assessment and Plan (1) MILAGRO (acute kidney injury): Status: Acute (2) Suicidal ideation: Status: Inactive (3) Alesia: Status: Acute (4) Rhabdomyolysis: Status: Acute Plan This is a 27-year-old male past medical history depression anxiety, comes into the hospital on manic episode state, found to have MILAGRO # MILAGRO - likely secondary to dehydration - will treat with IV fluids - follow BMP # rhabdomyolysis - under to dehydration - will treat with fluid - CPK level # alesia, suicidal ideation - care team consulted - section 12 - sitter at bedside DVT prophylaxis: Early ambulation Time Spent With Patient Time: Total time managing care of this patient today ____ minutes. Quality Stroke Does the patient have a stroke diagnosis?: No VTE Prior VTE?: No VTE Risk Level:: Medical - moderate - high VTE Device Contraindication: Treatment Not Indicated VTE Drug Contraindication: N/A - Med Ordered
[2023-06-07] MEDS: Lactated Ringers 1,000 ML 100 ML IVCONT (21:24)
--- NOTE | 2023-06-07 21:24 | PHA.MEDREC ---
Pharmacy Consult ? Medication Reconciliation Pharmacy has completed the medication reconciliation. Patient asleep. Utilized claim history to complete med rec. Santo DunnD
--- NOTE | 2023-06-08 01:18 | PC.NURSE ---
RN to RN report given to Glendy Pt will be transported to room 351, Pt and sitter aware of plan.
[2023-06-08 01:19] VITALS: BP 96/47; PULSE 89; RESP 16; TEMP 36.6; O2SAT 100
[2023-06-08 01:39] VITALS: BMI 26.1
[2023-06-08 01:43] VITALS: BP 102/56; PULSE 89; RESP 16; TEMP 36.4; O2SAT 99
[2023-06-08] MEDS: Lactated Ringers 1,000 ML 100 ML IVCONT ×3 (06:05→18:09)
[2023-06-08 06:20] LABS: Amphetamine Screen Urine POSITIVE (Not Detect); Barbiturates, Urine Not Detected (Not Detect); Benzodiazepines Screen Urine Not Detected (Not Detect); Cannabinoid Screen Urine POSITIVE (Not Detect); Cocaine Screen Urine Not Detected (Not Detect); Fentanyl, urine Not Detected (Not Detect); Opiate Screen Urine Not Detected (Not Detect); Phencyclidine Screen Urine Not Detected (Not Detect)
[2023-06-08 06:33] LABS: MANUAL DIFF FLAG NO
[2023-06-08 06:49] LABS: Basophils Percent Auto 0.4 % (0-2); Eosinophils Absolute Auto 0.2 X10*3/uL (0.0-0.4); Eosinophils Percent Auto 2.7 % (0-4); Hematocrit 39.9 % (42.0-52.0); Hemoglobin 13.5 g/dl (14.0-18.0); Imm Gran Abs Auto 0.04 X10*3/uL (0.00-0.03); Imm Gran Pct Auto 0.5 % (0.0-0.4); Lymphocytes Absolute Auto 2.2 X10*3/uL (1.2-4.9); Lymphocytes Percent Auto 28.1 % (20-40); Mean Corpuscular HGB Conc 33.8 g/dl (31.0-36.0); Mean Corpuscular Hemoglobin 30.6 pg (27.0-33.0); Mean Corpuscular Volume 90.5 fL (80.0-98.0); Mean Platelet Volume 10.2 fL (9.4-12.4); Monocytes Absolute Auto 0.9 X10*3/uL (0.1-1.2); Monocytes Percent Auto 11.4 % (2-11); Neutrophils Absolute Auto 4.4 x10*3/uL (2.0-8.3); Neutrophils Percent Auto 56.9 % (45-73); Platelet Count 218 X10*3/uL (160-400); Red Blood Count 4.41 X10*6/uL (4.60-5.80); Red Cell Distribution Width 13.6 % (11.0-16.0)
[2023-06-08 06:51] LABS: Anion Gap 15 (12-20); Blood Urea Nitrogen 26 mg/dL (9-16); Calcium 8.9 mg/dL (8.4-10.2); Carbon Dioxide 17 mmol/L (22-29); Chloride 110 mmol/L (96-108); Creatinine Clr Calc Pharmacy 104.2; Estimated Glomerular Filt Rate > 60; Glucose Random 97 mg/dL (60-115); Potassium 3.6 mmol/L (3.3-5.1); Sodium 138 mmol/L (135-145)
[2023-06-08 06:53] LABS: White Blood Count 7.8 X10*3/uL (4.8-10.8)
[2023-06-08 07:23] VITALS: BP 115/53; PULSE 94; RESP 18; TEMP 36.4; O2SAT 98
[2023-06-08] MEDS: OXcarbazepine 300 MG TABLET PO ×2 (09:08→20:01)
--- NOTE | 2023-06-08 09:19 | MHC.CM.PN ---
[facility] DELIVERED PT LIVES WITH OTHERS AT [address] [place] [address]. NOT HOMELESS PER PT. INDEPENDENT. NO HCP, DECLINES. NO PCP, DECLINES BROCHURE. +THRIVE ASSESSMENT BUT DECLINES RESOURCE GUIDE. CONTINUES WITH 1:1 SITTER. DP: HOME, NO SERVICES ANTICIPATED. PT WILL NEED A RIDE HOME AT [place] [facility]. CM WILL CONTINUE TO FOLLOW FOR ANY CHANGE IN PLAN/NEEDS
[2023-06-08] MEDS: 0.9 % Sodium Chloride 1,000 ML 999 ML IV (10:12)
--- NOTE | 2023-06-08 11:54 | HO.PM.IMPN ---
Subjective Subjective Date of Service: 06/08/23 Interval History: Seen and evaluated this morning Alert and interactive Denies any suicidal ideation, calm and comfortable CPK still elevated >1000 Review of Systems Review of Systems: Yes all other systems are reviewed and are negative Physical Exam Vital Signs: Vital Signs: Last Vital Signs Temp 97.6 F 06/08/23 07:23 Pulse 94 06/08/23 07:23 Resp 18 06/08/23 07:23 BP 115/53 L 06/08/23 07:23 Pulse Ox 98 06/08/23 07:23 O2 Del Method Room Air 06/08/23 07:23 BMI result Body Mass Index 26.1 Const: Other: Constitutional : Awake, interactive, not in distress Neck : Normal inspection, Supple Cardiovascular : RRR, no JVP, no lower extremity edema Respiratory : good bilateral air entry, no crackles, wheezes or rhonchi Gastrointestinal: soft, lax, Normal bowel sounds, Non tender Skin : Warm, Dry Neurological : Alert & oriented x3, No focal deficit Psych: fluent speech, not pressures, has insight Objective Data Active Medications Acetaminophen (Acetaminophen 325 Mg Tablet) 650 mg PO Q6H PRN PRN Reason: Pain, Mild (Pain Scale 1-3) Lactated Ringer's (Lr) 1,000 mls @ 150 mls/hr IVCONT .Q6H40M [facility] Last Admin: 06/08/23 11:32 Dose: 100 mls/hr Documented By: VERONIQUE Ondansetron HCl (Ondansetron Hcl 4 Mg/2 Ml Vial) 4 mg IVPUSH Q8H PRN PRN Reason: Nausea and Vomiting Oxcarbazepine (Oxcarbazepine 300 Mg Tablet) 300 mg PO BID [facility] Last Admin: 06/08/23 09:08 Dose: 300 mg Documented By: VERONIQUE Prazosin HCl (Prazosin Hcl 5 Mg Capsule) 5 mg PO BEDTIME [facility]; Protocol Sodium Chloride (0.9 % Sodium Chloride Flush 3 Ml Syringe) 3 ml IVFLUSH QSHIFT [facility] Last Admin: 06/08/23 07:34 Dose: Not Given Documented By: VERONIQUE Non-Admin Reason: IV Running Labs 06/08/23 06:14 06/08/23 06:14 Labs: Laboratory Results - last 24 hr 06/07/23 06/07/23 06/07/23 14:05 14:05 14:05 MCV 89.5 MCH 30.6 MCHC 34.1 RDW 13.7 Plt Count 331 MPV 9.9 Immature Gran % (Auto) 0.8 H Neut % (Auto) 70.3 Lymph % (Auto) 17.6 L Am[place] % (Auto) 10.6 Eos % (Auto) 0.1 Baso % (Auto) 0.6 Lymph # (Auto) 2.5 [place] # (Auto) 1.5 H Eos # (Auto) 0.0 Baso # (Auto) 0.1 Abs Immat Gran (auto) 0.11 H Absolute Neuts (auto) 10.1 H Absolute Nucleated RBC 0.000 Nucleated RBC % (auto) 0.0 Smear Tech's Comments VERIFIED Anion Gap 23 H Estim Creat Clear Calc 42.0 Estimated GFR 30 POC Glucose Random Glucose 82 Calcium 10.8 H D Total Bilirubin 1.1 H AST 31 ALT 24 Alkaline Phosphatase 133 H Total Creatine Kinase 725 H B-Natriuretic Peptide Total Protein 9.3 H Albumin 5.4 H TSH 3.40 Urine Opiates Screen Urine Fentanyl Screen Ur Barbiturates Screen Ur Phencyclidine Scrn Ur Amphetamines Screen U Benzodiazepines Scrn Urine Cocaine Screen U Marijuana (THC) Screen Ethyl Alcohol < 10 COVID-19 (NETTA) Negative COVID-19 Clin Com See Note 06/07/23 06/07/23 06/07/23 16:55 16:56 19:49 MCV MCH MCHC RDW Plt Count MPV Immature Gran % (Auto) Neut % (Auto) Lymph % (Auto) Amador % (Auto) Eos % (Auto) Baso % (Auto) Lymph # (Auto) Am[place] # (Auto) Eos # (Auto) Baso # (Auto) Abs Immat Gran (auto) Absolute Neuts (auto) Absolute Nucleated RBC Nucleated RBC % (auto) Smear Tech's Comments Anion Gap 20 18 Estim Creat Clear Calc 40.9 55.9 Estimated GFR 29 42 POC Glucose 62 Random Glucose 76 93 Calcium 10.0 D 9.0 D Total Bilirubin AST ALT Alkaline Phosphatase Total Creatine Kinase B-Natriuretic Peptide Total Protein Albumin TSH Urine Opiates Screen Urine Fentanyl Screen Ur Barbiturates Screen Ur Phencyclidine Scrn Ur Amphetamines Screen U Benzodiazepines Scrn Urine Cocaine Screen U Marijuana (THC) Screen Ethyl Alcohol COVID-19 (NETTA) COVID-19 Clin Com 06/07/23 06/08/23 06/08/23 19:49 06:14 06:14 MCV 90.5 MCH 30.6 MCHC 33.8 RDW 13.6 Plt Count 218 D MPV 10.2 Immature Gran % (Auto) 0.5 H Neut % (Auto) 56.9 Lymph % (Auto) 28.1 Amador % (Auto) 11.4 H Eos % (Auto) 2.7 Baso % (Auto) 0.4 Lymph # (Auto) 2.2 Amador # (Auto) 0.9 Eos # (Auto) 0.2 Baso # (Auto) 0.0 Abs Immat Gran (auto) 0.04 H Absolute Neuts (auto) 4.4 Absolute Nucleated RBC 0.000 Nucleated RBC % (auto) 0.0 Smear Tech's Comments Anion Gap 15 Estim Creat Clear Calc 104.2 Estimated GFR > 60 POC Glucose Random Glucose 97 Calcium 8.9 Total Bilirubin AST ALT Alkaline Phosphatase Total Creatine Kinase 1170 H B-Natriuretic Peptide 14 Total Protein Albumin TSH Urine Opiates Screen Urine Fentanyl Screen Ur Barbiturates Screen Ur Phencyclidine Scrn Ur Amphetamines Screen U Benzodiazepines Scrn Urine Cocaine Screen U Marijuana (THC) Screen Ethyl Alcohol COVID-19 (NETTA) COVID-19 [email or web address] 06/08/23 06/08/23 10:59 Unknown MCV MCH MCHC RDW Plt Count MPV Immature Gran % (Auto) Neut % (Auto) Lymph % (Auto) Amador % (Auto) Eos % (Auto) Baso % (Auto) Lymph # (Auto) Amador # (Auto) Eos # (Auto) Baso # (Auto) Abs Immat Gran (auto) Absolute Neuts (auto) Absolute Nucleated RBC Nucleated RBC % (auto) Smear Tech's Comments Anion Gap Estim Creat Clear Calc Estimated GFR POC Glucose Random Glucose Calcium Total Bilirubin AST ALT Alkaline Phosphatase Total Creatine Kinase 1149 H B-Natriuretic Peptide Total Protein Albumin TSH Urine Opiates Screen Not Detected Urine Fentanyl Screen Not Detected Ur Barbiturates Screen Not Detected Ur Phencyclidine Scrn Not Detected Ur Amphetamines Screen POSITIVE H U Benzodiazepines Scrn Not Detected Urine Cocaine Screen Not Detected U Marijuana (THC) Screen POSITIVE H Ethyl Alcohol COVID-19 (NETTA) COVID-19 [place] Com Assessment and Plan (1) Rhabdomyolysis: Status: Acute (2) MILAGRO (acute kidney injury): Status: Acute (3) Alesia: Status: Acute (4) Suicidal ideation: Status: Acute Plan This is a 27-year-old male past medical history depression anxiety, comes into the hospital on manic episode state, found to have MILAGRO # MILAGRO secondary to dehydration Improving with IV fluids follow BMP # rhabdomyolysis related to dehydration and drugs on IV fluid follow CPK level # alesia, suicidal ideation denies SI this morning, not manic behaviour anymore care team consulted section 12 sitter at bedside DVT prophylaxis: Early ambulation Time Spent With Patient Time: Total time managing care of this patient today ____ minutes. Quality Stroke Does the patient have a stroke diagnosis?: No VTE Prior VTE?: No VTE Risk Level:: Medical - moderate - high VTE Device Contraindication: Treatment Not Indicated VTE Drug Contraindication: N/A - Med Ordered
[2023-06-08 15:22] VITALS: BP 124/60; PULSE 94; RESP 18; TEMP 36.5; O2SAT 98
[2023-06-08 19:26] VITALS: BP 131/61; PULSE 84; RESP 18; TEMP 36.5; O2SAT 98
[2023-06-08] MEDS: Prazosin HCL 5 MG CAPSULE PO (20:01)
[2023-06-09] MEDS: Lactated Ringers 1,000 ML 100 ML IVCONT (01:05)
[2023-06-09 03:28] VITALS: BP 114/53; PULSE 81; RESP 16; TEMP 36.3; O2SAT 97
[2023-06-09 06:37] LABS: Anion Gap 12 (12-20); Blood Urea Nitrogen 11 mg/dL (9-16); Calcium 8.7 mg/dL (8.4-10.2); Carbon Dioxide 20 mmol/L (22-29); Chloride 113 mmol/L (96-108); Estimated Glomerular Filt Rate > 60; Glucose Random 99 mg/dL (60-115); Potassium 3.5 mmol/L (3.3-5.1); Sodium 141 mmol/L (135-145)
[2023-06-09 07:41] VITALS: BP 116/57; PULSE 89; RESP 16; TEMP 36; O2SAT 98
[2023-06-09] MEDS: OXcarbazepine 300 MG TABLET PO (07:44)
[2023-06-09 11:38] VITALS: BP 115/64; PULSE 72; RESP 16; TEMP 36.3; O2SAT 96
--- NOTE | 2023-06-09 12:28 | PM.DS ---
DS: Providers Provider Date of Service: 06/09/23 Date of admission: 06/07/23 21:10 Primary care physician: Unknown Physician Consults: 06/07/23 10:11 Consult to Care Team Stat Comment: Reason for consultation: Acute joanna,Section 12 by police 06/09/23 07:30 Consult to Care Team Routine Comment: Reason for consultation: medically clear, for psych eval and placement. DS: Diagnosis Discharge Diagnosis (1) Rhabdomyolysis: Status: Acute (2) MILAGRO (acute kidney injury): Status: Acute (3) Joanna: Status: Acute (4) Suicidal ideation: Status: Acute DS: Summary Hospital Course Hospital Course: Admission note HPI This is a 27-year-old male with no significant past medical history mood disorders possibly bipolar, comes into the hospital being delusional, hyperverbal, manic, word salad, and making SI comments.? Patient is right now sleeping, difficult to arouse, and therefore I am unable to get history from the patient history is obtained mostly from ED physician. ? patient comes in after section 12 was filed by police.? The patient was found wandering around in [place], he was manic, he had pressured speech flight of ideas, stated history of depression anxiety and suicidal ideation.? He received Haldol and Ativan in the ED. On further workup of patient found to have MILAGRO.? He received 2 L of fluid with persistent MILAGRO, therefore we are asked to admit patient. Labs are otherwise significant for CPK of 725, alcohol level negative,Vitals reviewed unremarkable.Patient will be admitted for further management. Hospital course The patient admitted for MILAGRO secondary to Rhabdomyolysis. treated with IV fluids with good response as kidney function improved back to normal and CPK trended down. he was able to tolerate diet and ambulate with no reported complaints. He was evaluated by the crisis team for joanna and suicidal ideation who recommended placement in psych unit for now as he was sectioned 12 at time of admission. Continue his home medications. Time Spent with Patient Time attestation: Total time managing care of this patient today ____ minutes. Discharge coordination time: Less than 30 minutes Quality: Safe Use of Opioids Does Pt have an Active Cancer Diagnosis on the Problem List?: No Quality: Stroke Does the patient have a stroke diagnosis?: No Physical Exam Vital Signs: Vital Signs: Last Vital Signs Temp 97.3 F 06/09/23 11:38 Pulse 72 06/09/23 11:38 Resp 16 06/09/23 11:38 BP 115/64 06/09/23 11:38 Pulse Ox 96 06/09/23 11:38 O2 Del Method Room Air 06/09/23 11:38 BMI result Body Mass Index 26.1 Const: Other: Constitutional : Awake, interactive, not in distress Neck : Normal inspection, Supple Cardiovascular : RRR, no JVP, no lower extremity edema Respiratory : good bilateral air entry, no crackles, wheezes or rhonchi Gastrointestinal: soft, lax, Normal bowel sounds, Non tender Skin : Warm, Dry Neurological : Alert & oriented x3, No focal deficit Psych: fluent speech, not pressures, has insight DS: Data Data Completed and Pending Labs on day of discharge: Laboratory Results - last 24 hr 06/09/23 06/09/23 05:52 05:52 Sodium 141 Potassium 3.5 Chloride 113 H Carbon Dioxide 20 L Anion Gap 12 BUN 11 Creatinine 0.73 Estim Creat Clear Calc 147.0 Estimated GFR > 60 Random Glucose 99 Calcium 8.7 Total Creatine Kinase 874 H Discharge Plan Discharge Patient Disposition: Xfer Other Discharge Diagnosis: Acute kidney injury Suicidal ideation Referrals: Physician,Unknown J [Primary Care Provider] - 1 Week Discharge Medications: Continued oxcarbazepine 300 mg tablet 300 mg PO BID prazosin 5 mg capsule 5 mg PO BEDTIME Aristada 662 mg/2.4 mL suspension,extended rel syring 662 mg IM QMONTH Discharge Orders: Discharge Order (Routine); Ordered 06/09/23 Ordered By: Ariana Patel Diet: Advance to usual diet Activity on Discharge: As tolerated Stand Alone Forms: Patient Portal Discharge page Care Plan Goals: . Health Concerns: . Plan of Treatment: . Assessment: .
== END 2023-06-09 15:02 | disposition other institution (70) ==
LOC: HO.ED 17:00 → HO.EDOVER 21:26 → HO.S3 06-08 00:20
PROVIDERS: Emergency Medicine Emergency Medical Services; Admitting Provider Internal Medicine; Emergency Provider Emergency Medicine; Visit Provider Student in an Organized Health Care Education/Training Program
DX: F30.9 Manic episode, unspecified (principal); R45.851 Suicidal ideations; N17.9 Acute kidney failure, unspecified; M62.82 Rhabdomyolysis; R00.0 Tachycardia, unspecified; Z20.822 Contact with and (suspected) exposure to COVID-19; F41.9 Anxiety disorder, unspecified; F17.200 Nicotine dependence, unspecified, uncomplicated; F12.90 Cannabis use, unspecified, uncomplicated; Z79.899 Other long term (current) drug therapy
CPT/HCPCS: 36415; 80048; 80053; 80307; 82550; 82947; 83880; 84443; 84484; 85025; 87635; 93005; 96360; 96361; 99221; 99285

== ENCOUNTER → 2023-06-07 10:50 | Outpatient (BNV) | payer MEDICARE, MEDICAID, SELFPAY | PROVIDERS: Emergency Provider Emergency Medicine; Visit Provider Internal Medicine Cardiovascular Disease | DX: I45.81 Long QT syndrome (principal) | CPT/HCPCS: 93010 ==

== ENCOUNTER → 2023-06-07 21:10 | Outpatient (BNV) | payer MEDICARE, MEDICAID, SELFPAY | PROVIDERS: Admitting Provider Internal Medicine; Emergency Provider Emergency Medicine; Visit Provider Internal Medicine | DX: M62.82 Rhabdomyolysis (principal); N17.9 Acute kidney failure, unspecified; F30.9 Manic episode, unspecified; R45.851 Suicidal ideations | CPT/HCPCS: 99223; 99233; 99238 ==

== ENCOUNTER 2023-06-09 13:55 | Inpatient (IN) | payer MEDICARE, MEDICAID, SELFPAY ==
[2023-06-09 04:45] VITALS: BP 137/69; PULSE 80; RESP 18; TEMP 36.6; O2SAT 97
[2023-06-09 17:55] VITALS: BMI 22.8
--- NOTE | 2023-06-09 18:25 | PC.ADMIT ---
Perez arrived to the unit at 1515, on a Conditional Voluntary. Sharps check done, upon approach Perez is calm and pleasant, when asked how he felt stated Ready to leave. He denied feeling depressed, denied AVH, when asked if he had any thoughts of wanting to hurt self or others stated No, verbalized to look for staff if thoughts occur. Perez had presented with intense eye contact, pressured speech, tangential, paranoid and delusional thought process. He appeared to have no insight, appeared manic per [place] police Perez had been walking in the middle of a busy street, had made multiple comments related to suicide including I experience suicidal ideation all the time and I want to stab my eyes out.
[2023-06-10 06:00] VITALS: BP 125/73; PULSE 81; RESP 18; TEMP 36.1; O2SAT 98
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
[2023-06-10] MEDS: OXcarbazepine 300 MG TABLET PO (08:40)
[2023-06-10 15:50] LABS: Alanine Aminotransferase 25 U/L (0-40); Albumin Level 4.1 g/dL (3.5-5.0); Alkaline Phosphatase 94 U/L (39-117); Anion Gap 16 (12-20); Aspartate Amino Transferase 22 U/L (5-37); Bilirubin Total 0.3 mg/dL (0.0-1.0); Blood Urea Nitrogen 10 mg/dL (9-16); Calcium 9.2 mg/dL (8.4-10.2); Carbon Dioxide 20 mmol/L (22-29); Chloride 108 mmol/L (96-108); Creatinine Clr Calc Pharmacy 146.2; Estimated Glomerular Filt Rate > 60; Glucose Random 101 mg/dL (60-115); Potassium 3.8 mmol/L (3.3-5.1); Sodium 140 mmol/L (135-145)
[2023-06-10] MEDS: hydrOXYzine HCL 25 MG TABLET PO (17:07)
[2023-06-10 17:11] VITALS: BP 128/69; PULSE 67; TEMP 36.4; O2SAT 98
[2023-06-11 09:00] VITALS: BP 117/58; PULSE 76; RESP 16; TEMP 36.5; O2SAT 97
[2023-06-11] MEDS: OXcarbazepine 300 MG TABLET PO (09:35)
--- NOTE | 2023-06-11 09:58 | P.PNPSI_ITS ---
Subjective Subjective Date of Service: 06/11/23 Reason For Visit: SI Interim History: Met with patient; discussed with team; reviewed weekend notes Patient reports that he has doing better and that the only reason he was behaviorally out of control was due to methamphetamine use. He says he does not use it very often but on the day used it he could not control himself and could not calm [himself] down mentally. He says it is all past at this time. Says no active suicidality. Patient says he has chronic SI but that it mostly remains in the background and able to be ignored; he says there are times when it gets more pronounced and that is when he reaches out to go to the hospital. Patient reports depression but says he has had all his life and he feels that he moises well enough without medications. Regarding medications he says he only ever takes them during hospitalization but as soon as he is discharged he stops him immediately. He said nothing use ever taken has seemed to help anyway, but acknowledges that he has probably not been on therapeutic dose induration. Patient says he has PTSD and borderline personality disorder; denies any history of manic type episodes or behaviors. Denies any psychotic symptoms, paranoid thinking outside of substance abuse. Patient signed a 3 day notice wants to leave. However he would like help getting in touch with [facility] so he can establish providers. Mental Status Exam Mental Status Exam Narrative: Pt is alert and oriented; behavior is cooperative and calm; patient is not in distress; dressed in hospital attire with unkempt hair but adequate hygiene; mood is described as fine and affect congruent; eye contact appropriate; Speech is normal rate, volume and prosody and not pressured; no psychomotor agit ation/retardation present; thought process is organized and goal directed; Thought content is on discharge; otherwise pertinent to relevant topics and without any delusional content, paranoid ideations or grandiosity; denies any SI/HI. There is no evidence of perceptual disturbance. Patients insight and judgment appear intact. Diagnostics Vital Signs (24Hr): Vital Signs - 24 hr 06/10/23 17:11 Temperature 97.6 F Pulse Rate 67 Blood Pressure 128/69 Pulse Oximetry 98 Oxygen Delivery Method Room Air BMI result Body Mass Index 22.8 Labs 06/10/23 15:08 Labs: Laboratory Results - last 48 hr 06/10/23 15:08 Sodium 140 Potassium 3.8 Chloride 108 Carbon Dioxide 20 L Anion Gap 16 BUN 10 Creatinine 0.73 Estim Creat Clear Calc 146.2 Estimated GFR > 60 Random Glucose 101 Calcium 9.2 Total Bilirubin 0.3 AST 22 ALT 25 Alkaline Phosphatase 94 Total Protein 7.0 Albumin 4.1 Medications Medications Current Medications Acetaminophen (Acetaminophen 325 Mg Tablet) 650 mg PO Q6H PRN PRN Reason: Pain, Mild (Pain Scale 1-3) Al Hydroxide/Mg Hydroxide (Magnesium Hydrox/Alum Hydrox 30 Ml Oral.Susp) 30 ml PO Q6H PRN PRN Reason: Heartburn/Nausea Hydroxyzine HCl (Hydroxyzine Hcl 25 Mg Tablet) 25 mg PO Q6H PRN PRN Reason: Anxiety Last Admin: 06/10/23 17:07 Dose: 25 mg Magnesium Hydroxide (Milk Of Magnesia 30 Ml Oral.Susp) 30 ml PO DAILY PRN PRN Reason: Constipation Oxcarbazepine (Oxcarbazepine 300 Mg Tablet) 300 mg PO BID LOIS Last Admin: 06/11/23 09:35 Dose: 300 mg Prazosin HCl (Prazosin Hcl 5 Mg Capsule) 5 mg PO BEDTIME LOIS; Protocol Last Admin: 06/10/23 22:14 Dose: Not Given Trazodone HCl (Trazodone Hcl 50 Mg Tablet) 50 mg PO BEDTIME MRX1 PRN PRN Reason: Insomnia Allergies Allergies Allergy/AdvReac Type Severity Reaction Status Date / Time latex Allergy Mild rash, hives Verified 09/28/21 15:36 Assessment & Plan Assessment & Plan (1) Substance-induced psychotic disorder: Status: Resolved Code(s): F19.959 - Other psychoactive substance use, unspecified with psychoactive substance-induced psychotic disorder, unspecified (2) MDD (major depressive disorder), recurrent episode, severe: Status: Acute Code(s): F33.2 - Major depressive disorder, recurrent severe without psychotic features (3) PTSD (post-traumatic stress disorder): Status: Acute Code(s): F43.10 - Post-traumatic stress disorder, unspecified (4) Borderline personality disorder: Status: Acute Code(s): F60.3 - Borderline personality disorder (5) MILAGRO (acute kidney injury): Status: Resolved Code(s): N17.9 - Acute kidney failure, unspecified (6) Rhabdomyolysis: Status: Resolved Code(s): M62.82 - Rhabdomyolysis Plan 27-year-old male with PTSD, depression borderline personality disorder, substance abuse (and with some mention of possible schizoaffective disorder) who presents after being found in the community, dysregulated, disorganized in speech and behavior and making suicidal comments. He meets criteria for [facility] level of care for stabilization treatment. I did order his medications but he has been refusing them. He refused laboratory studies this morning. He will meet with his treatment team on 05/14. Outpatient connections to be made. Has stated he has a 3 day notice and which will be up on 06/14 Hospital course: 06/11 Patient reports that he has doing better and that the only reason he was behaviorally out of control was due to methamphetamine use. He says he does not use it very often but on the day used it he could not control himself and could not calm [himself] down mentally. He says it is all past at this time. Says no active suicidality. Patient says he has chronic SI but that it mostly remains in the background and able to be ignored; he says there are times when it gets more pronounced and that is when he reaches out to go to the hospital. Patient reports depression but says he has had all his life and he feels that he moises well enough without medications. Regarding medications he says he only ever takes them during hospitalization but as soon as he is discharged he stops him immediately. He said nothing use ever taken has seemed to help anyway, but acknowledges that he has probably not been on therapeutic dose induration. Patient says he has PTSD and borderline personality disorder; denies any history of manic type episodes or behaviors; he does not know why he was diagnosed with schizoaffective disorder and refutes any of the symptoms associated other than chronic depression. Denies any psychotic symptoms, paranoid thinking outside of substance abuse. Patient signed a 3 day notice wants to leave. However he would like help getting in touch with [facility] so he can establish providers. -patient has thus far remained in behavioral and impulse control on the unit; mostly keeps himself but otherwise appropriate with peers and staff. No psychotic dysregulated symptoms at all. Sleeping well. Patient is not uncooperative, but does not want treatment of any kind including groups or medication which he politely declines. If he remains in good behavioral and impulse control, will proceed with discharge. Whatever was going on in the community is now resolved and has done so without any medication. Regarding diagnosis, per patient's report and current presentation will leave diagnosis as depression, PTSD, personality disorder and substance induced psychotic disorder. However records also show that he has been on long-acting Abilify Aristada meaning someone thought he needed to be on a long-acting antipsychotic; will leave schizoaffective disorder as a rule out PLAN: 3 day notice Q 15 minute checks Patient refuses medications Patient educated on: diagnosis, medication risk/benefits, substance abuse and therapeutic strategies Informed Consent: understands Reason for continued inpatient stay Substantial Risk for: stable for discharge Time Spent With Patient Time: Total time managing care of this patient today ____ minutes.
[2023-06-11] MEDS: hydrOXYzine HCL 25 MG TABLET PO (19:04)
[2023-06-11 19:15] VITALS: BP 128/84; PULSE 84; TEMP 36.2; O2SAT 99
--- NOTE | 2023-06-11 20:56 | PC.NURSE ---
Patient refused HS Tripleptal and Prazosin.
[2023-06-12 08:00] VITALS: BP 122/58; PULSE 80; RESP 14; TEMP 36.6; O2SAT 100
[2023-06-12] MEDS: OXcarbazepine 300 MG TABLET PO (09:11)
--- NOTE | 2023-06-12 15:57 | HO.PSYCHPN ---
Subjective Subjective Date of Service: 06/12/23 Reason For Visit: SI Interim History: Met with patient; discussed with team Patient remains calm, in good behavioral and impulse control; denies psychiatric symptoms other than his chronic depression. Wants to discharge tomorrow. Mental Status Exam Mental Status Exam Narrative: Pt is alert and oriented; behavior is cooperative and calm; patient is not in distress; dressed in hospital attire with unkempt hair but adequate hygiene; mood is described as fine and affect congruent; eye contact appropriate; Speech is normal rate, volume and prosody and not pressured; no psychomotor agitation/retardation present; thought process is organized and goal directed; Thought content is on discharge; otherwise pertinent to relevant topics and without any delusional content, paranoid ideations or grandiosity; denies any SI/HI. There is no evidence of perceptual disturbance. Patients insight and judgment appear intact. Diagnostics Vital Signs (24Hr): Vital Signs - 24 hr 06/11/23 19:15 06/12/23 08:00 Temperature 97.1 F 97.8 F Pulse Rate 84 80 Respiratory Rate 14 Blood Pressure 128/84 122/58 L Pulse Oximetry 99 100 Oxygen Delivery Method Room Air Room Air BMI result Body Mass Index 22.8 Labs 06/10/23 15:08 Medications Medications Current Medications Acetaminophen (Acetaminophen 325 Mg Tablet) 650 mg PO Q6H PRN PRN Reason: Pain, Mild (Pain Scale 1-3) Al Hydroxide/Mg Hydroxide (Magnesium Hydrox/Alum Hydrox 30 Ml Oral.Susp) 30 ml PO Q6H PRN PRN Reason: Heartburn/Nausea Hydroxyzine HCl (Hydroxyzine Hcl 25 Mg Tablet) 25 mg PO Q6H PRN PRN Reason: Anxiety Last Admin: 06/11/23 19:04 Dose: 25 mg Magnesium Hydroxide (Milk Of Magnesia 30 Ml Oral.Susp) 30 ml PO DAILY PRN PRN Reason: Constipation Oxcarbazepine (Oxcarbazepine 300 Mg Tablet) 300 mg PO BID LOIS Last Admin: 06/12/23 09:11 Dose: 300 mg Prazosin HCl (Prazosin Hcl 5 Mg Capsule) 5 mg PO BEDTIME LOIS; Protocol Last Admin: 06/11/23 20:37 Dose: Not Given Trazodone HCl (Trazodone Hcl 50 Mg Tablet) 50 mg PO BEDTIME MRX1 PRN PRN Reason: Insomnia Allergies Allergies Allergy/AdvReac Type Severity Reaction Status Date / Time latex Allergy Mild rash, hives Verified 09/28/21 15:36 Assessment & Plan Assessment & Plan (1) Substance-induced psychotic disorder: Status: Resolved Code(s): F19.959 - Other psychoactive substance use, unspecified with psychoactive substance-induced psychotic disorder, unspecified (2) MDD (major depressive disorder), recurrent episode, severe: Status: Acute Code(s): F33.2 - Major depressive disorder, recurrent severe without psychotic features (3) PTSD (post-traumatic stress disorder): Status: Acute Code(s): F43.10 - Post-traumatic stress disorder, unspecified (4) Borderline personality disorder: Status: Acute Code(s): F60.3 - Borderline personality disorder (5) MILAGRO (acute kidney injury): Status: Resolved Code(s): N17.9 - Acute kidney failure, unspecified (6) Rhabdomyolysis: Status: Resolved Code(s): M62.82 - Rhabdomyolysis Plan 27-year-old male with PTSD, depression borderline personality disorder, substance abuse (and with some mention of possible schizoaffective disorder) who presents after being found in the community, dysregulated, disorganized in speech and behavior and making suicidal comments. He meets criteria for hospital level of care for stabilization treatment. I did order his medications but he has been refusing them. He refused laboratory studies this morning. He will meet with his treatment team on 05/14. Outpatient connections to be made. Has stated he has a 3 day notice and which will be up on 06/14 Hospital course: 06/11 Patient reports that he has doing better and that the only reason he was behaviorally out of control was due to methamphetamine use. He says he does not use it very often but on the day used it he could not control himself and could not calm [himself] down mentally. He says it is all past at this time. Says no active suicidality. Patient says he has chronic SI but that it mostly remains in the background and able to be ignored; he says there are times when it gets more pronounced and that is when he reaches out to go to the hospital. Patient reports depression but says he has had all his life and he feels that he moises well enough without medications. Regarding medications he says he only ever takes them during hospitalization but as soon as he is discharged he stops him immediately. He said nothing use ever taken has seemed to help anyway, but acknowledges that he has probably not been on therapeutic dose induration. Patient says he has PTSD and borderline personality disorder; denies any history of manic type episodes or behaviors; he does not know why he was diagnosed with schizoaffective disorder and refutes any of the symptoms associated other than chronic depression. Denies any psychotic symptoms, paranoid thinking outside of substance abuse. Patient signed a 3 day notice wants to leave. However he would like help getting in touch with [facility] so he can establish providers. -patient has thus far remained in behavioral and impulse control on the unit; mostly keeps himself but otherwise appropriate with peers and staff. No psychotic dysregulated symptoms at all. Sleeping well. Patient is not uncooperative, but does not want treatment of any kind including groups or medication which he politely declines. If he remains in good behavioral and impulse control, will proceed with discharge. 06/12 patient remains in good behavioral and impulse control; no psychotic or disorganized symptoms present. Still not interested in treatment or medication and planning to discharge tomorrow. Social work able to get in touch with [facility] and patient does have outpatient providers set up. While patient remains vulnerable to decompensation and her relapse, he is not in imminent risk for harm to self or others and team will proceed with discharge. Whatever was going on in the community is now resolved and has done so without any medication. Regarding diagnosis, per patient's report and current presentation will leave diagnosis as depression, PTSD, personality disorder and substance induced psychotic disorder. However records also show that he has been on long-acting Abilify Aristada meaning someone thought he needed to be on a long-acting antipsychotic; will leave schizoaffective disorder as a rule out PLAN: 3 day notice Q 15 minute checks Patient refuses medications Patient educated on: diagnosis Informed Consent: understands Reason for continued inpatient stay Substantial Risk for: stable for discharge Time Spent With Patient Time: Total time managing care of this patient today ____ minutes.
[2023-06-12 16:43] VITALS: BP 116/58; PULSE 77; RESP 18; TEMP 36.2; O2SAT 98
--- NOTE | 2023-06-12 21:10 | PC.NURSE ---
Patient refusing medications tonight. States he has not taken any medications since he has been here. He is very short in answers with yes/no's and is stating he feels fine . Isolated to room.
--- NOTE | 2023-06-12 21:45 | P.DS_ITS ---
DS: Providers Provider Date of Service: 06/13/23 Date of admission: 06/09/23 13:55 Date of discharge: 06/13/23 Primary care physician: Daniella Physician Attending physician on admission: Indio Brito Attending physician on discharge: Cecilio Fitch DS: Diagnosis Discharge Diagnosis (1) Substance-induced psychotic disorder: Status: Resolved (2) MDD (major depressive disorder), recurrent episode, severe: Status: Acute (3) PTSD (post-traumatic stress disorder): Status: Acute (4) Borderline personality disorder: Status: Acute (5) MILAGRO (acute kidney injury): Status: Resolved (6) Rhabdomyolysis: Status: Resolved Mental Status Exam Mental Status Exam Narrative: Pt is alert and oriented; behavior is cooperative and calm; patient is not in distress; dressed in hospital attire with unkempt hair but adequate hygiene; mood is described as good and affect congruent, bright; eye contact appropriate; Speech is normal rate, volume and prosody and not pressured; no psychomotor agitation/retardation present; thought process is organized and goal directed; Thought content is on discharge; otherwise pertinent to relevant topics and without any delusional content, paranoid ideations or grandiosity; denies any SI/HI. There is no evidence of perceptual disturbance and he denies AVH. Patients insight and judgment are intact. Data Data Completed and Pending Completed studies during hospitalization [Text1]: 06/10/23 15:08 Sodium 140 Potassium 3.8 Chloride 108 Carbon Dioxide 20 L Anion Gap 16 BUN 10 Creatinine 0.73 Estim Creat Clear Calc 146.2 Estimated GFR > 60 Random Glucose 101 Calcium 9.2 Total Bilirubin 0.3 AST 22 ALT 25 Alkaline Phosphatase 94 Total Protein 7.0 Albumin 4.1 DS: Summary Hospital Course Hospital Course: 27-year-old male with PTSD, depression borderline personality disorder, substance abuse (and with some mention of possible schizoaffective disorder) who presents after being found in the community, dysregulated, disorganized in speech and behavior and making suicidal comments.? He meets criteria for hospital level of care for stabilization treatment.? I did order his medications but he has been refusing them.? He refused laboratory studies this morning.? Hospital course: 06/11 Patient reports that he has doing better and that the only reason he was behaviorally out of control was due to methamphetamine use.? He says he does not use it very often but on the day used it he could not control himself and could not calm [himself] down mentally. He says it is all past at this time.? Says no active suicidality.? Patient says he has chronic SI but that it mostly remains in the background and able to be ignored; he says there are times when it gets more pronounced and that is when he reaches out to go to the hospital.? Patient reports depression but says he has had all his life and he feels that he moises well enough without medications.? Regarding medications he says he only ever takes them during hospitalization but as soon as he is discharged he stops him immediately.? He said nothing use ever taken has seemed to help anyway, but acknowledges that he has probably not been on therapeutic dose induration.? Patient says he has PTSD and borderline personality disorder; denies any history of manic type episodes or behaviors; he does not know why he was diagnosed with schizoaffective disorder and refutes any of the symptoms associated other than chronic depression.? Denies any psychotic symptoms, paranoid thinking outside of substance abuse.? Patient signed a 3 day notice wants to leave.? However he would like help getting in touch with [facility] so he can establish providers. -patient has thus far remained in behavioral and impulse control on the unit; mostly keeps himself but otherwise appropriate with peers and staff.? No psychotic dysregulated symptoms at all.? Sleeping well.? Patient is not uncooperative, but does not want treatment of any kind including groups or medication which he politely declines.? If he remains in good behavioral and impulse control, will proceed with discharge. 06/12 patient remains in good behavioral and impulse control; no psychotic or disorganized symptoms present.? Still not interested in treatment or medication and planning to discharge tomorrow.? Social work able to get in touch with [facility] and patient does have outpatient providers set up.? On day of discharge patient reported he was in a good mood and feeling safe. While patient remains vulnerable to decompensation and her relapse, he is not in imminent risk for harm to self or others and team will proceed with discharge. Whatever was going on in the community is now resolved and has done so without any medication. Regarding diagnosis, per patient's report and current presentation will leave diagnosis as depression, PTSD, personality disorder and substance induced psychotic disorder.? However records also show that he has been on long-acting Abilify Aristada meaning someone thought he needed to be on a long-acting antipsychotic; will leave schizoaffective disorder as a rule out Time spent discussing smoking cessation with patient: 3 to 10 minutes Status at Discharge Functional status at discharge: independent ambulation Overall status at discharge: patient is back to baseline Time Spent with Patient Time attestation: Total time managing care of this patient today ____ minutes. Time spent: Less than 30 minutes Discharge Plan Discharge Anticipated Discharge Date/Time: 06/13/23 11:00 Patient Disposition: Home, Self-Care Discharge Diagnosis: substance induced psychotic disorder, in full remission Referrals: [facility] Finch [Other] - 06/20/23 1:00 pm (She will meet you at your residence.) [facility] Open Access [Other] - 1 Week (Walk-in Hours for an intake appt. 10am-12pm M-F) [facility] [Other] (Walk in if needed) Discharge Medications: Discontinued oxcarbazepine 300 mg tablet 300 mg PO BID prazosin 5 mg capsule 5 mg PO BEDTIME Aristada 662 mg/2.4 mL suspension,extended rel syring 662 mg IM QMONTH Discharge Orders: Discharge Order (Routine); Ordered 06/09/23 Ordered By: Indio Brito Diet: Regular diet Activity on Discharge: As tolerated Stand Alone Forms: Patient Portal Discharge page, Community Support Care Plan Goals: Maintain mood and safe behaviors Take medications as prescribed Continue to pursue sobriety Practice coping skills Continue with outpatient providers and reach out to them as needed Health Concerns: Mood stability and behaviors Sobriety Plan of Treatment: Follow up with your Psychiatric provider and other outpatient providers regarding above concerns Take medications as prescribed Assessment: Risk assessment at time of discharge:? Patient was interviewed prior to discharge and found to be fully oriented and without any SI or HI. Patient has insight and demonstrates good judgment in terms of wanting to pursue treatment. Patient is not in imminent risk of harm to self or others and has a safety plan that includes presenting to the closest ER or calling 911 if feeling unsafe.? Patient has been observed closely by nursing and unit staff throughout admission; patient has not engaged in any behaviors that suggest dangerousness to self or others and has demonstrated appropriate behaviors and impulse control Discharge Date/Time: 06/13/23 10:44
--- NOTE | 2023-06-13 06:32 | PC.NURSE ---
patient is alert/oriented, isolated to room, in bed at 2000 and refusing all medications. Patient giving short answers, states he feels fine and states the reason he doesnt want to take the medications is that he has not taken them since admit.
[2023-06-13] MEDS: OXcarbazepine 300 MG TABLET PO (08:07)
[2023-06-13 08:33] VITALS: BP 128/70; PULSE 76; RESP 16; TEMP 36.2; O2SAT 99
[2023-06-13] MEDS: hydrOXYzine HCL 25 MG TABLET PO (09:43)
[2023-06-13] MEDS: Naloxone HCl Nasal TAKE HOME 4 MG SPRAY 8 MG NOSTRILALT (09:44)
== END 2023-06-13 10:44 | disposition home or self-care (01) | DRG 897 ==
PROVIDERS: Admitting Provider Psychiatry & Neurology Psychiatry; Visit Provider Psychiatry & Neurology Psychiatry
DX: F19.959 Other psychoactive substance use, unspecified with psychoactive substance-induced psychotic disorder, unspecified (principal); F33.2 Major depressive disorder, recurrent severe without psychotic features; N17.9 Acute kidney failure, unspecified; M62.82 Rhabdomyolysis; R45.851 Suicidal ideations; F17.210 Nicotine dependence, cigarettes, uncomplicated; Z71.6 Tobacco abuse counseling; F43.10 Post-traumatic stress disorder, unspecified; F60.3 Borderline personality disorder; Z91.040 Latex allergy status; Z91.148 Patient's other noncompliance with medication regimen for other reason
CPT/HCPCS: 36415; 80048; 80053; 80307; 82550; 82947; 83880; 84443; 84484; 85025; 87635; 93005; 96360; 96361; 99221; 99285

== ENCOUNTER → 2023-06-09 13:55 | Outpatient (BNV) | payer MEDICARE, MEDICAID, SELFPAY | PROVIDERS: Admitting Provider Psychiatry & Neurology Psychiatry; Visit Provider Psychiatry & Neurology Psychiatry | DX: F19.959 Other psychoactive substance use, unspecified with psychoactive substance-induced psychotic disorder, unspecified (principal); F33.2 Major depressive disorder, recurrent severe without psychotic features; F43.11 Post-traumatic stress disorder, acute; F60.3 Borderline personality disorder; N17.9 Acute kidney failure, unspecified; M62.82 Rhabdomyolysis | CPT/HCPCS: 90792; 99231; 99232; 99238 ==

== ENCOUNTER 2023-06-16 23:53 | Emergency (ER) | payer MEDICARE, MEDICAID, SELFPAY ==
[2023-06-16 23:59] VITALS: PULSE 140; O2SAT 100
--- NOTE | 2023-06-17 00:17 | ED.PSYCH ---
HPI - Psych General Chief Complaint: Psychiatric Symptoms Stated Complaint: substance abuse Time Seen by Provider: 06/17/23 00:00 Source: patient Mode of arrival: EMS Limitations: other (psychosis) History of Present Illness HPI Narrative: 31 yo patient who will not give us his name or was reportedly per EMS in a well known local drug house when he was acting erratic and they called 911. 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 He asks for a mood stabilizer and ativan. MD complaint: other (psychosis, unusual behaviors) Onset (ago): unknown Duration: constant History of same: Yes Relieving factors: none Exacerbating factors: none Context: not taking psychiatric medications Associated psychiatric symptoms: racing thoughts and delusions Treatments prior to arrival: none Related Data Allergies Allergy/AdvReac Type Severity Reaction Status Date / Time latex Allergy Unknown Unknown Verified 06/17/23 00:12 Review of Systems Review of Systems: ROS unable to be obtained due to agitation and psychosis [facility] Past Medical History Attestation statement: The following information was validated with the patient. Medical History Schizoaffective disorder Social History Social History (Updated 06/17/23 @ 00:41 by Kerry Montilla DO) Patient Tobacco Use Status: Current someday Tobacco user Physical Exam Vital Signs: Vital Signs: BMI result Body Mass Index 23.5 Appearance: Alert. disheveled wearing a green fluffy sweater with pardo underwear. Mild acute distress. Eyes: Pupils equal, round and reactive to light 4 to 5mm slightly dilated ENT: Pharynx normal. atraumatic Neck: Normal inspection. Neck supple. CVS: tachycardic heart rate and rhythm. Pulses normal. Respiratory: No respiratory distress. Breath sounds normal. Abdomen: Soft and non-tender. Skin: Skin warm and dry. Normal skin color. Normal skin turgor. Extremities: No lower extremity edema. Neuro: Oriented to self but will not answer otherwise. No motor deficit. No sensory deficit. CN2-12 intact steady gait hyperverbal talking in circles, making up words, laughing, rubbing his stomach, making sexual references Course Course Course Narrative: refusing labs Patient placed in physician observation at 105am. The indication for observation is that the patient needs more time to have CARE team involved. At this time the patient is well developed well nourished, but psychotic. He is refusing labs. Medications Administered Discontinued Medications Generic Name Dose Route Start Last Admin Trade Name Ector PRN Reason Stop Dose Admin Lorazepam 2 mg 06/17/23 00:12 06/17/23 00:43 Lorazepam 1 Mg Tablet PO 06/17/23 00:13 2 mg ONCE ONE Administration Olanzapine 10 mg 06/17/23 00:12 06/17/23 00:43 Olanzapine Odt 10 Mg Tab.Rapdis TRANSLINGU 06/17/23 00:13 10 mg ONCE ONE Administration Medical Decision Making Medical Decision Making MDM Narrative: 31 yo male with hx of what he reports is schizoaffective here with rapid speech, tangential thoughts, psychosis, agitation at this time will give zyprexa and ativan and obtain labs and refer to CARE team. Differential Diagnosis Differential Diagnoses: The differential diagnosis associated with the presentation includes substance abuse, mental health issue Admission/Observation Consideration of admission/observation: Escalation of care including admission/observation considered appears in crisis - section 12 ordered will need CARE team consult Consult Healthcare Provider Management of the patient was discussed with: [employer] Lab Data [facility] Lab Attestation statement: I reviewed the patient's lab results. Independent Historian Clinical information obtained from an independent historian. History obtained from or confirmed by: EMS Tests considered The following testing was considered but not selected: no signs of head trauma and mentions schizoaffective and [facility] stays I believe this is likely mental illness and not trauma or brain mass Social Determinants Patient?s care significantly limited by Social Determinants of Health including: Problems related to primary support group Discharge Plan Discharge Clinical Impression: Acute psychosis Patient Disposition: Still a Patient
[2023-06-17 00:26] VITALS: BMI 23.5
--- NOTE | 2023-06-17 00:31 | PC.NURSE ---
Pt is alert not oriented. Not making sense and not answering questions appropriately. Refusing vitals and labs at this time. Unable to provide urine sample. Pt changed over with security. Pending physician eval.
[2023-06-17] MEDS: OLANZapine ODT 10 MG TAB.RAPDIS TRANSLINGU (00:43)
[2023-06-17] MEDS: LORazepam 1 MG TABLET 2 MG PO ×2 (00:43→11:49)
[2023-06-17 02:00] VITALS: BP 137/95; PULSE 135; RESP 18; TEMP 36.2; O2SAT 98
[2023-06-17 02:34] LABS: Amphetamine Screen Urine POSITIVE (Not Detect); Barbiturates, Urine Not Detected (Not Detect); Benzodiazepines Screen Urine Not Detected (Not Detect); Cannabinoid Screen Urine POSITIVE (Not Detect); Cocaine Screen Urine Not Detected (Not Detect); Fentanyl, urine Not Detected (Not Detect); Opiate Screen Urine Not Detected (Not Detect); Phencyclidine Screen Urine Not Detected (Not Detect)
--- NOTE | 2023-06-17 02:42 | MHC.EDTECH ---
PATIENT CLOTHING LOCKED UP IN POD ,VITALS SIGN TAKEN ,RIGOBERTO CARDOZO IS AWARE OF PATIENT HIGH HR ,PATIENT COVID SWAB COLLECTED ,URINE COLLECTED AND SENT TO LAB ,PATIENT REFUSED TO BE STUCK BY NEEDLE,WE OFFER A FINGER A FINGER STICK WHICH PATIENT AGREE ,BLOOD DRAW SENT TO LAB ,LAB CALLED AND SAID THEY NEEDED A REDRAWN OF CBC ,PATIENT REFUSED AGAIN RIGOBERTO CARDOZO SAID IT WAS FINE .
[2023-06-17 02:48] LABS: COVID-19 Test Negative (Negative); IDNOW Serial# 6674DD1D
[2023-06-17 03:03] LABS: Alanine Aminotransferase 36 U/L (0-40); Albumin Level 4.8 g/dL (3.5-5.0); Alkaline Phosphatase 125 U/L (39-117); Anion Gap 22 (12-20); Aspartate Amino Transferase 34 U/L (5-37); Bilirubin Direct 0.1 mg/dL (0.0-0.5); Bilirubin Total 0.5 mg/dL (0.0-1.0); Blood Urea Nitrogen 22 mg/dL (9-16); Calcium 9.5 mg/dL (8.4-10.2); Carbon Dioxide 14 mmol/L (22-29); Chloride 109 mmol/L (96-108); Creatinine Clr Calc Pharmacy 91.8; Estimated Glomerular Filt Rate > 60; Ethanol < 10 mg/dL; Glucose Random 98 mg/dL (60-115); Potassium 5.2 mmol/L (3.3-5.1); Sodium 140 mmol/L (135-145); Total Protein 8.2 g/dL (6.5-8.0)
--- NOTE | 2023-06-17 05:27 | PC.NURSE ---
Patient is currently in bed appears sleeping, patient just went to bed, thought content paranoid, patient was recently discharge from , patient has poly-substance induced psychotic D/O, patient was transferred from main ED as Niko Martin however after talking to patient we are able to retrieve information to identify the patient, patient refused to to blood work but agreed for finger stick, CBC hemolyzed but rest resulted, FRY resulted, patient was discharged from with no medication, currently not on any home medication, care consult ordered pending evaluation, behavior non concerning, VSS, will continue to monitor.
[2023-06-17 11:31] LABS: Appearance Urine Clear; Color Urine Yellow; Glucose Urine UA Negative (Negative); Leukocyte Esterase Urine Negative (Negative); Nitrite Urine Negative (Negative); Urine Blood Negative (Negative); Urine Ketones Negative (Negative); Urine Protein Negative (Neg-Trace)
[2023-06-17 11:36] LABS: Bacteria Urine None Seen (None Seen); Hyaline Casts Urine 0-2 /LPF (0-2); RBC Urine 0-2 /HPF (0-2); Squamous Epithelial Cell Urine 0-2 /HPF (0-2); WBC Urine 0-5 /HPF (0-5)
--- NOTE | 2023-06-17 12:54 | PC.NURSE ---
Perez who states they like either name (Perez or Daphine) and go with the flow for pronouns has been visible in the milieu since waking up. Pleasant on approach and denying any SI/HI/AVH. Requested and received Lorazepam 2mg PO for anxiety with stated good effect. Perez verbalized they have been using drugs and that they realize this is a problem but they don't feel safe in their current housing situation and have an upcoming DM appointment on Sunday. Perez is advocating for their discharge as they feel like they are safe. Staff will continue to monitor.
[2023-06-17 13:48] VITALS: BP 146/79; PULSE 126; RESP 18; TEMP 36.5; O2SAT 99
[2023-06-17 14:06] VITALS: PULSE 112
== END 2023-06-17 14:08 | disposition home or self-care (01) ==
PROVIDERS: Emergency Provider Emergency Medicine
DX: F25.9 Schizoaffective disorder, unspecified (principal); F29 Unspecified psychosis not due to a substance or known physiological condition; Z79.899 Other long term (current) drug therapy; Z20.822 Contact with and (suspected) exposure to COVID-19; Z20.828 Contact with and (suspected) exposure to other viral communicable diseases
CPT/HCPCS: 80048; 80076; 80307; 81001; 87635; 99284; S9485

== ENCOUNTER 2023-08-15 22:48 | Inpatient (IN) | payer MEDICARE, MEDICAID, SELFPAY ==
[2023-08-15 22:52] VITALS: PULSE 179; O2SAT 100
[2023-08-15 22:56] VITALS: BMI 22.6
--- NOTE | 2023-08-15 23:20 | PC.NURSE ---
pt is not being cooperative with staff. pt is getting out of bed walking in mirza talking out loud not following commands but is alert and oriented.
--- NOTE | 2023-08-15 23:35 | PC.NURSE ---
per security pt belongings is in closet in pod since all other lockers are full.
--- NOTE | 2023-08-15 23:59 | ED_ITS ---
HPI - General Adult General Chief complaint: General Medical Stated complaint: Psych Time Seen by Provider: 08/15/23 23:58 Source: patient and EMS Mode of arrival: EMS Limitations: no limitations History of Present Illness HPI narrative: Patient transgender male to female with history of PTSD borderline personality disorder substance induced psychotic disorder , schizoaffective disorder noncompliant to medications, brought by EMS for hallucinating talking with questionable suicidal feels dissociated from the world Related Data Home Medications Medication Instructions Recorded Confirmed No Known Home Meds 08/16/23 08/16/23 Allergies Allergy/AdvReac Type Severity Reaction Status Date / Time latex Allergy Mild rash, hives Verified 09/28/21 15:36 Review of Systems 2 Review of Systems: Yes all other systems are reviewed and are negative [facility] Past Medical History Medical History Schizoaffective disorder Borderline personality disorder PTSD (post-traumatic stress disorder) MDD (major depressive disorder), recurrent episode, severe Schizoaffective disorder Depression with anxiety Suicidal ideation Social History Social History Household Members: Unknown / Unable to assess Household Members Other:: Unknown Housing: House Do you presently have visiting nurse or other home services: No Unable to assess alcohol history related to: Unknown Patient Tobacco Use Status: Current someday Tobacco user Tobacco use type: Cigarette Cigarette Packs Per Day: 1 Cigarettes Per Day: 20.0 Years Smoked: Unknown Second Hand Smoke Exposure: Yes Substance Use Type: Crack/Cocaine and Marijuana Advance Directives: No Advance Directives Information Provided: Yes service: No Sexual orientation: Lesbian/Oh/Homosexual Physical Exam ED Vital Signs: BMI result Body Mass Index 22.6 Appearance: Alert. Oriented X3. No acute distress. Eyes: PERRLA, No Nystagmus ENT: Pharynx normal. Oral Mucosa moist Neck: Normal inspection. Neck supple. CVS: Normal heart rate and rhythm. Pulses normal. Respiratory: No respiratory distress. Equal air entry bilateral, no wheezing/rales/rhonchi Abdomen: Soft and nontender. Bowel sounds are present, no mass palpable, no CVA tenderness Skin: Skin warm and dry. Normal skin color. Normal skin turgor. Extremities: No lower extremity edema. No calf tenderness psych: Walking randomly changing topic of discussion , dissociated, hallucinating denies any current SI or HI Neuro: Oriented X 3. No motor deficit. No sensory deficit.No cerebellar signs , cranial nerves II-XII intact Medications Administered Discontinued Medications Generic Name Dose Route Start Last Admin Trade Name Freq PRN Reason Stop Dose Admin Diphenhydramine HCl 50 mg 08/16/23 02:36 08/16/23 02:40 Diphenhydramine Hcl 50 Mg/Ml Vial IM 08/16/23 02:37 50 mg ONCE ONE Administration Haloperidol Lactate 5 mg 08/16/23 02:36 08/16/23 02:40 Haloperidol Lactate 5 Mg/Ml Vial IM 08/16/23 02:37 5 mg STAT STA Administration Lorazepam 2 mg 08/16/23 00:03 08/16/23 00:26 Lorazepam 1 Mg Tablet PO 08/16/23 00:04 Not Given ONCE ONE Lorazepam 2 mg 08/16/23 02:36 08/16/23 02:40 Lorazepam 2 Mg/Ml Vial IM 08/16/23 02:37 2 mg STAT STA Administration Olanzapine 10 mg 08/16/23 00:03 08/16/23 00:26 Olanzapine 10 Mg Tablet PO 08/16/23 00:04 Not Given ONCE ONE Olanzapine 10 mg 08/16/23 02:24 08/16/23 02:28 Olanzapine 10 Mg Tablet PO 08/16/23 02:25 10 mg ONCE ONE Administration Medical Decision Making Medical Decision Making [facility] Narrative: Patient with schizoaffective disorder with will get care team involved for evaluation patient responded to IM Haldol which she requested Differential Diagnosis Differential Diagnoses: The differential diagnosis associated with the presentation includes Substance abuse/schizoaffective disorder/disorder/PTSD Lab Data [facility] Lab Attestation statement: I reviewed the patient's lab results. 08/16/23 00:20 08/16/23 00:20 Labs: Lab Results 08/16/23 08/16/23 Range/Units 00:20 00:20 WBC 20.2 H (4.8-10.8) X10*3/uL RBC 5.78 D (4.60-5.80) X10*6/uL Hgb 17.6 D (14.0-18.0) g/dl Hct 50.9 D (42.0-52.0) % MCV 88.1 (80.0-98.0) fL MCH 30.4 (27.0-33.0) pg MCHC 34.6 (31.0-36.0) g/dl RDW 12.6 (11.0-16.0) % Plt Count 390 D (160-400) X10*3/uL MPV 10.1 (9.4-12.4) fL Immature Gran % (Auto) 0.6 H (0.0-0.4) % Neut % (Auto) 79.0 H (45-73) % Lymph % (Auto) 10.3 L (20-40) % [place] % (Auto) 9.7 (2-11) % Eos % (Auto) 0.0 (0-4) % Baso % (Auto) 0.4 (0-2) % Lymph # (Auto) 2.1 (1.2-4.9) X10*3/uL [place] # (Auto) 2.0 H (0.1-1.2) X10*3/uL Eos # (Auto) 0.0 (0.0-0.4) X10*3/uL Baso # (Auto) 0.1 (0.0-0.2) X10*3/uL Abs Immat Gran (auto) 0.12 H (0.00-0.03) X10*3/uL Absolute Neuts (auto) 16.0 H (2.0-8.3) x10*3/uL Absolute Nucleated RBC 0.000 (0.0-0.012) X10*3/uL Nucleated RBC % (auto) 0.0 (0.0-0.2) /100WBC Smear Tech's Comments VERIFIED Sodium 143 (135-145) mmol/L Potassium 3.5 D (3.3-5.1) mmol/L Chloride 104 (96-108) mmol/L Carbon Dioxide 18 L (22-29) mmol/L Anion Gap 25 H (12-20) BUN 26 H (9-16) mg/dL Creatinine 2.33 H (0.5-1.4) mg/dL Estim Creat Clear Calc 46.7 Estimated GFR 34 Random Glucose 105 (60-115) mg/dL Calcium 10.9 H D (8.4-10.2) mg/dL Total Bilirubin 0.9 (0.0-1.0) mg/dL AST 23 (5-37) U/L ALT 16 (0-40) U/L Alkaline Phosphatase 118 H (39-117) U/L Total Protein 9.4 H (6.5-8.0) g/dL Albumin 5.6 H (3.5-5.0) g/dL Ethyl Alcohol < 10 Cancelled mg/dL COVID-19 (NETTA) Negative (Negative) COVID-19 Clin Com See Note Discharge Plan Discharge Clinical Impression: MDD (major depressive disorder), recurrent episode, severe Prescriptions: No Action No Known Home Meds
[2023-08-16 00:28] LABS: Basophils Absolute Auto 0.1 X10*3/uL (0.0-0.2); Basophils Percent Auto 0.4 % (0-2); Hematocrit 50.9 % (42.0-52.0); Hemoglobin 17.6 g/dl (14.0-18.0); Imm Gran Abs Auto 0.12 X10*3/uL (0.00-0.03); Imm Gran Pct Auto 0.6 % (0.0-0.4); Lymphocytes Absolute Auto 2.1 X10*3/uL (1.2-4.9); Lymphocytes Percent Auto 10.3 % (20-40); MANUAL DIFF FLAG SCAN; Mean Corpuscular HGB Conc 34.6 g/dl (31.0-36.0); Mean Corpuscular Hemoglobin 30.4 pg (27.0-33.0); Mean Corpuscular Volume 88.1 fL (80.0-98.0); Mean Platelet Volume 10.1 fL (9.4-12.4); Monocytes Percent Auto 9.7 % (2-11); Platelet Count 390 X10*3/uL (160-400); Red Blood Count 5.78 X10*6/uL (4.60-5.80); Red Cell Distribution Width 12.6 % (11.0-16.0); SCAN SMEAR FLAG 1; White Blood Count 20.2 X10*3/uL (4.8-10.8)
[2023-08-16 00:47] LABS: COVID-19 Test Negative (Negative); IDNOW Serial# 6674DD1D
[2023-08-16 00:48] LABS: SLIDE REVIEW VERIFIED
[2023-08-16 00:51] LABS: Alanine Aminotransferase 16 U/L (0-40); Albumin Level 5.6 g/dL (3.5-5.0); Alkaline Phosphatase 118 U/L (39-117); Anion Gap 25 (12-20); Aspartate Amino Transferase 23 U/L (5-37); Bilirubin Total 0.9 mg/dL (0.0-1.0); Blood Urea Nitrogen 26 mg/dL (9-16); Calcium 10.9 mg/dL (8.4-10.2); Carbon Dioxide 18 mmol/L (22-29); Chloride 104 mmol/L (96-108); Creatinine Clr Calc Pharmacy 46.7; Estimated Glomerular Filt Rate 34; Ethanol < 10 mg/dL; Glucose Random 105 mg/dL (60-115); Potassium 3.5 mmol/L (3.3-5.1); Sodium 143 mmol/L (135-145); Total Protein 9.4 g/dL (6.5-8.0)
[2023-08-16] MEDS: OLANZapine 10 MG TABLET PO (02:28)
[2023-08-16] MEDS: diphenhydrAMINE HCL 50 MG/ML VIAL IM (02:40)
[2023-08-16] MEDS: Haloperidol Lactate 5 MG/ML VIAL IM (02:40)
[2023-08-16] MEDS: LORazepam 2 MG/ML VIAL IM (02:40)
--- NOTE | 2023-08-16 02:46 | PC.NURSE ---
Patient repeatedly refused PO medication for his psychomotor agitation, repeatedly requesting IV or IM medication, two attempts were done to offer PO medication, first one he spat out in main ED, provider notified/ordered Haldol 5 mg Im, Benadryl 50 mg IM, and Ativan 2 mg IM, administered as ordered at 0240/as requested/patient compliant, VSS, care consult ordered/pending evaluation, med rec completed/patient medication was completelt discontinued during last inpatient visit in [facility], labs completed/resulted, will continue to monitor.
--- NOTE | 2023-08-16 06:28 | PC.NURSE ---
Patient is in bed sleeping, belonging list is not completed in main ED, urine pending, refusing vital sign assessment, will continue to monitor.
--- NOTE | 2023-08-16 07:22 | PC.NURSE ---
client temporarily will be sent to main ED 6 for hydration-elevated creatinine, he will return to pod upon completion
[2023-08-16 07:35] VITALS: BP 124/79; PULSE 116; RESP 16; O2SAT 99
--- NOTE | 2023-08-16 07:40 | PC.NURSE ---
IV established, fluids infusing. patient observer at bedside for safety.
[2023-08-16 08:10] VITALS: BP 127/77; PULSE 106; RESP 16; O2SAT 100
--- NOTE | 2023-08-16 08:36 | PC.NURSE ---
Addendum entered by Jeannette Hurt 08/16/23 09:33: repeat lab work obtained, pt calm and cooperative at this time, conversing with staff appropriately. Original Note: second liter of fluids infusing
[2023-08-16 09:55] LABS: Alanine Aminotransferase 15 U/L (0-40); Albumin Level 4.5 g/dL (3.5-5.0); Alkaline Phosphatase 91 U/L (39-117); Anion Gap 17 (12-20); Aspartate Amino Transferase 40 U/L (5-37); Bilirubin Total 0.9 mg/dL (0.0-1.0); Blood Urea Nitrogen 32 mg/dL (9-16); Calcium 8.7 mg/dL (8.4-10.2); Carbon Dioxide 17 mmol/L (22-29); Chloride 109 mmol/L (96-108); Creatinine Clr Calc Pharmacy 45.3; Estimated Glomerular Filt Rate 33; Glucose Random 93 mg/dL (60-115); Potassium 4.2 mmol/L (3.3-5.1); Sodium 139 mmol/L (135-145); Total Protein 7.4 g/dL (6.5-8.0)
[2023-08-16 10:44] VITALS: BP 126/69; PULSE 110; RESP 18; O2SAT 98
--- NOTE | 2023-08-16 11:37 | PM.IMHP ---
History of Present Illness Date of Service: 08/16/23 Attending physician on admission: Speedy Gibson Chief Complaint: si 27-year-old transgender female assigned male at with history of mild intermittent asthma, schizoaffective disorder, borderline personality disorder, major depressive disorder, methamphetamine abuse, and PTSD with dissociative disorder presented to the ED late last night due to hallucinations with suicidal ideation and feelings of dissociation from the world. She reports methamphetamine use with attempted overdose on 08/14. On arrival, patient tachycardic to 116, vitals otherwise within normal limits. She has a mild of 12.0, decreased from 20.2 on arrival. On arrival, creatinine 2.33 (baseline around 1.1), BUN 26 with slight worsening of renal function with creatinine 2.40, BUN 32 following 2 L IV fluid bolus. CPK 2143. Electrolyte levels normal except for CO2 of 17. Urinalysis with 1+ blood, 2+ protein, with calcium oxalate crystals present, otherwise unremarkable. She denies any fevers, chills, abdominal pain, vomiting, leg edema, lightheadedness, headaches, shortness of breath, chest pain. Does endorse some nausea as well as 1 episode of diarrhea with incontinence earlier today. In the ED, given 5 mg Haldol, IV lorazepam, IV Zyprexa, 50 mg Benadryl. Initially was to be assessed by Care Team for psychiatric admission, but given MILAGRO will be admitted to medical service. Does currently endorse SI. Review of Systems Review of Systems: General: No fevers, malaise, unintentional weight loss HEENT: No blurred vision, diplopia. No sore throat, nasal congestion, rhinorrhea, sinus pain, ear pain Cardiovascular: No chest pain, palpitations, or leg edema Respiratory: No shortness of breath, wheezing, cough GI: +nausea. No abdominal pain, vomiting, constipation, melena, hematochezia : No dysuria, hematuria, increased urinary frequency, decreased urinary output MSK: No myalgia, back pain Neuro: No headaches, weakness, paresthesias Psych: +dissociation, +depression, +SI Skin: No rashes or lesions [facility] Medical History (Updated 08/16/23 @ 11:58 by PAULINE Guzman) Dissociative disorder Schizoaffective disorder Borderline personality disorder PTSD (post-traumatic stress disorder) MDD (major depressive disorder), recurrent episode, severe Schizoaffective disorder Depression with anxiety Suicidal ideation Social History Household Members: Unknown / Unable to assess Household Members Other:: Unknown Housing: House Do you presently have visiting nurse or other home services: No Unable to assess alcohol history related to: Unknown Patient Tobacco Use Status: Current someday Tobacco user Tobacco use type: Cigarette Cigarette Packs Per Day: 1 Cigarettes Per Day: 20.0 Years Smoked: Unknown Second Hand Smoke Exposure: Yes Substance Use Type: Crack/Cocaine and Marijuana Advance Directives: No Advance Directives Information Provided: Yes service: No Sexual orientation: Lesbian/Oh/Homosexual Meds Allergies Allergy/AdvReac Type Severity Reaction Status Date / Time latex Allergy Mild rash, hives Verified 09/28/21 15:36 Active Medications: Current Medications Acetaminophen (Acetaminophen 325 Mg Tablet) 650 mg PO Q6H PRN PRN Reason: Pain, Mild (Pain Scale 1-3) Docusate Sodium (Docusate Sodium 100 Mg Capsule) 100 mg PO DAILY PRN PRN Reason: Constipation Heparin Sodium (Porcine) (Heparin Sodium,Porcine 5,000 Unit/Ml Vial) 5,000 unit SUBCUT Q12H LOIS Sodium Chloride (Ns) 1,000 mls @ 200 mls/hr IVCONT .Q5H LOIS Sodium Chloride (Ns) 1,000 mls @ 125 mls/hr IVCONT .Q8H LOIS Ondansetron HCl (Ondansetron Hcl 4 Mg/2 Ml Vial) 4 mg IVPUSH Q8H PRN PRN Reason: Nausea and Vomiting Sodium Chloride (0.9 % Sodium Chloride Flush 3 Ml Syringe) 3 ml IVFLUSH QSHIFT [facility] Home Medications Medication Instructions Recorded Confirmed Last Taken Type No Known Home Meds 08/16/23 08/16/23 Unknown History Physical Exam Vital Signs and Narrative: Vital Signs: Last Vital Signs Pulse 110 H 08/16/23 10:44 Resp 18 08/16/23 10:44 BP 126/69 08/16/23 10:44 Pulse Ox 98 08/16/23 10:44 O2 Del Method Room Air 08/16/23 10:44 BMI result Body Mass Index 22.6 Constitutional - Awake and Alert, No apparent distress Eyes - PERRLA, EOMI Cardiovascular - S1S2, regular rhythm, tachycardic, No edema Respiratory - Normal lung expansion, Normal respiratory effort, No respiratory distress, CTA bilaterally Gastrointestinal - NT / ND; +BS; No rebound or guarding Extremities - no calf tenderness bilaterally, no swelling Skin - Warm/Dry Neurological - Alert & oriented x3, CN II-XII in tact Psychological - flat affect, depressed mood, clear speech, depersonalized Results Labs 08/16/23 09:32 08/16/23 09:32 Labs: Laboratory Results - last 24 hr 08/16/23 08/16/23 08/16/23 00:20 00:20 09:19 MCV 88.1 MCH 30.4 MCHC 34.6 RDW 12.6 Plt Count 390 D MPV 10.1 Immature Gran % (Auto) 0.6 H Neut % (Auto) 79.0 H Lymph % (Auto) 10.3 L [place] % (Auto) 9.7 Eos % (Auto) 0.0 Baso % (Auto) 0.4 Lymph # (Auto) 2.1 [place] # (Auto) 2.0 H Eos # (Auto) 0.0 Baso # (Auto) 0.1 Abs Immat Gran (auto) 0.12 H Absolute Neuts (auto) 16.0 H Absolute Nucleated RBC 0.000 Nucleated RBC % (auto) 0.0 Smear Tech's Comments VERIFIED Anion Gap 25 H Estim Creat Clear Calc 46.7 Estimated GFR 34 Random Glucose 105 Calcium 10.9 H D Total Bilirubin 0.9 AST 23 ALT 16 Alkaline Phosphatase 118 H Total Creatine Kinase Total Protein 9.4 H Albumin 5.6 H Urine Color Yellow Urine Appearance Cloudy Urine pH 5.5 Ur Specific Mcloud 1.015 Urine Protein 100 (2+) H Urine Glucose (UA) Negative Urine Ketones 15 Urine Blood Small (1+) H Urine Nitrite Negative Ur Leukocyte Esterase Negative Urine RBC 0-2 Urine WBC 0-5 Ur Squamous Epith Cells 3-5 Calcium Oxalate Crystal Present Urine Bacteria None Seen Hyaline Casts >20 Urine Opiates Screen Not Detected Urine Fentanyl Screen Not Detected Ur Barbiturates Screen Not Detected Ur Phencyclidine Scrn Not Detected Ur Amphetamines Screen POSITIVE H U Benzodiazepines Scrn Not Detected Urine Cocaine Screen Not Detected U Marijuana (THC) Screen POSITIVE H Ethyl Alcohol < 10 Cancelled COVID-19 (NETTA) Negative COVID-19 Clin Com See Note 08/16/23 09:32 MCV 91.5 MCH 31.0 MCHC 33.9 RDW 12.8 Plt Count 259 D MPV 10.7 Immature Gran % (Auto) 0.5 H Neut % (Auto) 64.7 Lymph % (Auto) 19.8 L [place] % (Auto) 14.1 H Eos % (Auto) 0.2 Baso % (Auto) 0.7 Lymph # (Auto) 2.4 [place] # (Auto) 1.7 H Eos # (Auto) 0.0 Baso # (Auto) 0.1 Abs Immat Gran (auto) 0.06 H Absolute Neuts (auto) 7.8 Absolute Nucleated RBC 0.000 Nucleated RBC % (auto) 0.0 Smear Tech's Comments VERIFIED Anion Gap 17 Estim Creat Clear Calc 45.3 Estimated GFR 33 Random Glucose 93 Calcium 8.7 D Total Bilirubin 0.9 AST 40 H ALT 15 Alkaline Phosphatase 91 Total Creatine Kinase 2153 H Total Protein 7.4 Albumin 4.5 Urine Color Urine Appearance Urine pH Ur Specific Mcloud Urine Protein Urine Glucose (UA) Urine Ketones Urine Blood Urine Nitrite Ur Leukocyte Esterase Urine RBC Urine WBC Ur Squamous Epith Cells Calcium Oxalate Crystal Urine Bacteria Hyaline Casts Urine Opiates Screen Urine Fentanyl Screen Ur Barbiturates Screen Ur Phencyclidine Scrn Ur Amphetamines Screen U Benzodiazepines Scrn Urine Cocaine Screen U Marijuana (THC) Screen Ethyl Alcohol COVID-19 (NETTA) COVID-19 Clin Com Assessment and Plan (1) Dissociative disorder: Status: Acute (2) Proteinuria: Qualifiers: Proteinuria type: unspecified Qualified Code(s): R80.9 - Proteinuria, unspecified Status: Acute (3) Metabolic acidosis: Status: Acute (4) Acute renal failure: Qualifiers: Acute renal failure type: unspecified Qualified Code(s): N17.9 - Acute kidney failure, unspecified Status: Acute (5) Elevated CPK: Status: Acute Plan 27-year-old transgender female assigned male at with history of mild intermittent asthma, schizoaffective disorder, borderline personality disorder, major depressive disorder, methamphetamine abuse, and PTSD with dissociative disorder admitted for further management of MILAGRO with metabolic acidosis and elevated CPK likely r/t methamphetamine use. Patient is also reporting active SI. #Acute Kidney injury -Creat 2.3-> 2.4 in ED (baseline 1.1), BUN 32 -likely 2/2 methamphetamine intoxication and decreased fluid intake -Urine creatinine and sodium pending -Avoid nephrotoxins -Low sodium diet -renal u/s ordered given nausea and calcium oxalate crystals seen on UA to rule out nephrolithiasis which could be contributory -Nephrology consult -Continue IVF @125ml/hr -Follow BMP #Acute metabolic acidosis- compensating -due to above -continue IVF #Proteinuria -nephrology consult -low-sodium diet -IVF #Elevated CPK -due to above -sx not consistent with rhabdomyolysis -continue IVF # methamphetamine abuse with intoxication -urine tox screen positive for methamphetamines and cannabis -addition med consult # schizoaffective disorder with SI -not on home meds at this time -sitter consult placed -will need care team consult, pt reports desires rehab/[facility] at [facility] #Sinus tachycardia -r/t above #Mild intermittent asthma -no acute exacerbation -albuterol p.r.n. DVT prophylaxis-heparin Full code Patient requires inpatient stay at least 2 midnights for management of acute kidney injury with elevated CPK requiring receive IV fluid resuscitation, expert consultation, and close monitoring given suicidal ideation. Time Spent With Patient Time: Total time managing care of this patient today ____ minutes. Quality Stroke Does the patient have a stroke diagnosis?: No VTE Prior VTE?: No VTE Risk Level:: Medical - moderate - high VTE Device Contraindication: Treatment Not Indicated VTE Drug Contraindication: N/A - Med Ordered
--- NOTE | 2023-08-16 12:00 | PC.NURSE ---
ultrasound at bedside, pt continues to rest quietly in room no signs/symtoms of distress. patient observer remains at bedside.
[2023-08-16 15:31] VITALS: BP 132/68; PULSE 102; RESP 16; TEMP 36.7; O2SAT 99
[2023-08-16 18:20] VITALS: BMI 25.6
[2023-08-16 19:26] VITALS: BP 117/54; PULSE 93; RESP 18; TEMP 36.9; O2SAT 98
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
[2023-08-17] VITALS: BP 120/62; PULSE 98; RESP 18; TEMP 36.7; O2SAT 97
[2023-08-17 06:05] LABS: Anion Gap 15 (12-20); Blood Urea Nitrogen 14 mg/dL (9-16); Calcium 8.7 mg/dL (8.4-10.2); Carbon Dioxide 18 mmol/L (22-29); Chloride 113 mmol/L (96-108); Creatinine Clr Calc Pharmacy 140.4; Estimated Glomerular Filt Rate > 60; Glucose Random 85 mg/dL (60-115); Potassium 3.8 mmol/L (3.3-5.1); Sodium 142 mmol/L (135-145)
[2023-08-17 07:59] VITALS: BP 116/56; PULSE 87; RESP 18; TEMP 36.1; O2SAT 98
--- NOTE | 2023-08-17 10:00 | PC.NURSE ---
Pt. screamimg, yelling and crying stating that she can't do that anymore, saying she have done so much bad things and there's nothing else left inside her. She stated that she wants to kill herself, stated she's been in the system and only gets help for couple of days and get kicked back to the streets
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
[2023-08-17 16:00] VITALS: BP 115/59; PULSE 84; RESP 18; TEMP 36.7; O2SAT 98
--- NOTE | 2023-08-17 16:14 | PM.DS ---
DS: Providers Provider Date of Service: 08/17/23 Date of admission: 08/16/23 11:34 Primary care physician: Unknown Physician Consults: 08/16/23 00:06 Consult to Care Team Stat Comment: Reason for consultation: psychotic 08/16/23 11:34 Consult to Nephrology Routine Consulting Provider: Jeremiah Ag Reason for consultation: milagro, proteinuria, elevated ck 08/16/23 11:37 Consult for Sitter Routine Reason for consultation: SI 08/16/23 11:45 Addiction Medicine Routine Consulting Provider: Addiction Covering Reason for consultation: methamphetamine abuse/intoxication 08/17/23 09:55 Consult to Care Team Stat Comment: Reason for consultation: SI DS: Diagnosis Discharge Diagnosis (1) Acute renal failure: Status: Acute (2) Dissociative disorder: Status: Acute (3) Proteinuria: Status: Acute (4) Metabolic acidosis: Status: Acute (5) Elevated CPK: Status: Acute DS: Summary Hospital Course Hospital Course: Date of Service: 08/16/23 Attending physician on admission: Speedy Gibson Chief Complaint: si 27-year-old transgender female assigned male at with history of mild intermittent asthma, schizoaffective disorder, borderline personality disorder, major depressive disorder, methamphetamine abuse, and PTSD with dissociative disorder presented to the ED late last night due to hallucinations with suicidal ideation and feelings of dissociation from the world. She reports methamphetamine use with attempted overdose on 08/14. On arrival, patient tachycardic to 116, vitals otherwise within normal limits. She has a mild of 12.0, decreased from 20.2 on arrival. On arrival, creatinine 2.33 (baseline around 1.1), BUN 26 with slight worsening of renal function with creatinine 2.40, BUN 32 following 2 L IV fluid bolus. CPK 2143. Electrolyte levels normal except for CO2 of 17. Urinalysis with 1+ blood, 2+ protein, with calcium oxalate crystals present, otherwise unremarkable. She denies any fevers, chills, abdominal pain, vomiting, leg edema, lightheadedness, headaches, shortness of breath, chest pain. Does endorse some nausea as well as 1 episode of diarrhea with incontinence earlier today. In the ED, given 5 mg Haldol, IV lorazepam, IV Zyprexa, 50 mg Benadryl. Initially was to be assessed by Care Team for psychiatric admission, but given MILAGRO will be admitted to medical service. Does currently endorse SI. Hospital course 27-year-old transgender female assigned male at with history of mild intermittent asthma, schizoaffective disorder, borderline personality disorder, major depressive disorder, methamphetamine abuse, and PTSD with dissociative disorder admitted for further management of MILAGRO with metabolic acidosis and elevated CPK likely r/t methamphetamine use, #Acute Kidney injury admitted to medical floor with a creatinine of 2.4 with baseline creatinine of 1.1 treated with IV fluids renal function normalized, renal ultrasound showed no calculi, patient seen by Nephrology milagro likely due to amphetamine overdose and anion gap metabolic acidosis resolved, has chronically elevated CPK likely related to amphetamines, CPK trending down, strongly recommend to abstain from illicit drug use seen by Addiction Team and care team and plan is for inpatient psychiatric admission due to suicidal ideation #Acute metabolic acidosis- chronic and stable # methamphetamine abuse with intoxication -urine tox screen positive for methamphetamines and cannabis, seen by Addiction Team day agree with inpatient psychiatric admission for medication evaluation, mood stabilization as well as possible step-down to CSS or explore section 35 # schizoaffective disorder with SI not on home medication seen by care team , being discharged to psych floor #Mild intermittent asthma-no acute exacerbation noted continue as needed albuterol Time Spent with Patient Time attestation: Total time managing care of this patient today ____ minutes. Discharge coordination time: Greater than 30 minutes Quality: Safe Use of Opioids Does Pt have an Active Cancer Diagnosis on the Problem List?: No Quality: Stroke Does the patient have a stroke diagnosis?: No Physical Exam Vital Signs: Vital Signs: Last Vital Signs Temp 98.1 F 08/17/23 16:00 Pulse 84 08/17/23 16:00 Resp 18 08/17/23 16:00 BP 115/59 L 08/17/23 16:00 Pulse Ox 98 08/17/23 16:00 O2 Del Method Room Air 08/17/23 07:59 BMI result Body Mass Index 25.6 Const: Other: Constitutional - Awake and Alert, No apparent distress Neck no JVD Cardiovascular - S1S2, regular rhythm, tachycardic, No edema Respiratory - Normal lung expansion, Normal respiratory effort, No respiratory distress, CTA bilaterally Gastrointestinal - NT / ND; +BS; No rebound or guarding Extremities - no calf tenderness bilaterally, no swelling Skin - Warm/Dry Neurological - Alert & oriented x3, nonfocal speech clear Psychological - flat affect, depressed mood, clear speech, depersonalized DS: Data Data Completed and Pending Labs on day of discharge: Laboratory Results - last 24 hr 08/16/23 08/16/23 08/17/23 17:44 18:29 05:13 WBC 6.4 RBC 4.16 L Hgb 13.0 L Hct 37.9 L MCV 91.1 MCH 31.3 MCHC 34.3 RDW 13.0 Plt Count 217 MPV 10.7 Immature Gran % (Auto) 0.3 Neut % (Auto) 50.2 Lymph % (Auto) 33.2 [place] % (Auto) 12.1 H Eos % (Auto) 3.3 Baso % (Auto) 0.9 Lymph # (Auto) 2.1 [place] # (Auto) 0.8 Eos # (Auto) 0.2 Baso # (Auto) 0.1 Abs Immat Gran (auto) 0.02 Absolute Neuts (auto) 3.2 Absolute Nucleated RBC 0.000 Nucleated RBC % (auto) 0.0 Sodium 139 142 Potassium 3.9 3.8 Chloride 108 113 H Carbon Dioxide 19 L 18 L Anion Gap 16 15 BUN 21 H 14 Creatinine 1.12 0.79 Estim Creat Clear Calc 99.0 140.4 Estimated GFR > 60 > 60 Random Glucose 80 85 Osmolality 290 Calcium 8.7 Total Creatine Kinase 1902 H Ur Random Sodium 41.0 Urine Creatinine 155.10 Discharge Plan Discharge Patient Disposition: Xfer Psychiatric Hosp Discharge Diagnosis: Acute kidney injury Anion gap metabolic acidosis Suicidal ideation Referrals: Physician,Daniella J [Primary Care Provider] - 1 Week Discharge Medications: No Action No Known Home Meds Discharge Orders: Discharge Order (Routine); Ordered 08/17/23 Ordered By: Speedy Gibson Diet: Advance to usual diet Activity on Discharge: As tolerated Stand Alone Forms: Patient Portal Discharge page Care Plan Goals: Admitted for acute kidney injury likely due to amphetamine overdose renal function normalize, avoid nephrotoxins Suicidal ideation/schizoaffective disorder, major depression disorder noncompliance with medication Health Concerns: Homeless Plan of Treatment: Transferred to psych facility for suicidal ideation/illicit drug use Assessment: As above
== END 2023-08-17 10:45 | disposition short-term general hospital (02) | DRG 918 ==
LOC: HO.ED 08-16 10:43 → HO.EDOVER 08-16 11:41 → HO.S3 08-16 13:32
PROVIDERS: Internal Medicine; Admitting Provider Physician Assistant; Emergency Provider Emergency Medicine; Visit Provider Hospitalist
DX: T43.621A Poisoning by amphetamines, accidental (unintentional), initial encounter (principal); N17.9 Acute kidney failure, unspecified; E87.21 Acute metabolic acidosis; F15.13 Other stimulant abuse with withdrawal; M62.82 Rhabdomyolysis; R45.851 Suicidal ideations; F17.210 Nicotine dependence, cigarettes, uncomplicated; F41.9 Anxiety disorder, unspecified; R00.0 Tachycardia, unspecified; F43.10 Post-traumatic stress disorder, unspecified; F25.9 Schizoaffective disorder, unspecified; F64.0 Transsexualism; J45.20 Mild intermittent asthma, uncomplicated; Z71.6 Tobacco abuse counseling; Z20.822 Contact with and (suspected) exposure to COVID-19; Z91.040 Latex allergy status; Z79.899 Other long term (current) drug therapy
CPT/HCPCS: 36415; 76775; 80048; 80051; 80053; 80061; 80164; 80179; 80307; 81001; 82550; 82565; 82570; 82607; 82746; 82947; 83036; 83735; 83930; 84300; 84439; 84443; 84520; 85025; 87635; 99285; J1200; J2060; S9485

== ENCOUNTER → 2023-08-16 11:34 | Outpatient (BNV) | payer MEDICARE, MEDICAID, SELFPAY | PROVIDERS: Admitting Provider Physician Assistant; Emergency Provider Emergency Medicine; Visit Provider Physician Assistant | DX: N17.9 Acute kidney failure, unspecified (principal); F44.9 Dissociative and conversion disorder, unspecified; R80.9 Proteinuria, unspecified; E87.20 Acidosis, unspecified; R74.8 Abnormal levels of other serum enzymes | CPT/HCPCS: 99223; 99239 ==

== ENCOUNTER 2023-08-17 23:22 | Inpatient (IN) | payer MEDICARE, MEDICAID, SELFPAY ==
[2023-08-17 22:55] VITALS: BP 119/68; PULSE 86; TEMP 36.3
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
[2023-08-18 07:50] LABS: Estimated Average Glucose 97 mg/dL
[2023-08-18 08:01] LABS: Cholesterol 189 mg/dL (<200); HDL Cholesterol 33 mg/dL (>40); LDL Cholesterol Calculated 133 mg/dL (<100); Magnesium 2.1 mg/dL (1.6-2.6); Triglycerides 115 mg/dL (<150)
[2023-08-18 08:15] VITALS: BP 117/55; PULSE 91; RESP 16; TEMP 36.4; O2SAT 96
[2023-08-18 08:19] LABS: Free T4 (Free Thyroxine) 1.29 ng/dL (0.71-1.85)
[2023-08-18 08:31] LABS: Folate 8.2 ng/mL (> or = 4.0); Vitamin B12 385 pg/mL (200-900)
[2023-08-18 16:21] VITALS: BP 113/78; PULSE 84; TEMP 36.9; O2SAT 96
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
--- NOTE | 2023-08-18 17:49 | MHC.RECOVRN ---
Attempt to make contact with pt for ACS referral. Pt sleeping at this time in room 505, plan to defer assessment until pt is awake to better gauge mood and appropriateness for interview. Pt's RN aware of deferral.
[2023-08-19 06:00] VITALS: RESP 16
--- NOTE | 2023-08-19 13:39 | HO.PSYCHPN ---
Subjective Subjective Date of Service: 08/19/23 Reason For Visit: Overdose Medical Problems Affecting Mental Status: No Interim History: Pt seen, discussed with team. Plan of care reviewed. Pt remains with acute SI. Discussed precipitants to admission, fear of arrest, conviction, serving time and having to register as an offender. Discussed interventions Medication Compliance: Yes Side effects from medications: No Attending Groups: No Review of Systems Acute medical concerns: No Medical Review of Systems: unchanged Mental Status Exam Mental Status Exam Patient Appearance: Fatigued Patient Orientation: Person, Place, Time and Situation Level of Consciousness: Alert Patient Behavior: Talkative, Suspicious and Good Eye Contact Mood Description: Withdrawn and Depressed Affect Description: Flat Patient Cognition Impaired: No Ability to Follow Directions: Fair Speech Pattern: Spontaneous Speech Memory Description: Episodic Impaired Hallucinations: Auditory (when using substances) Delusions: Not Present Perceptual Disturbances: Derealization Thought Process: Distracted and Rumination Thought Content: positive for Circumstantial and positive for Suicidal Ideation Depressive Symptoms: Difficulty Sleeping, Crying Spells, Feelings of Worthlessness, Hopelessness, Feelings of Guilt, Unhappiness, Increased Fatigue, Thoughts of /Suicide, Loss of Energy and Difficulty Concentrating Judgement: Poor Diagnostics Vital Signs (24Hr): Vital Signs - 24 hr 08/18/23 16:21 08/19/23 06:00 Temperature 98.4 F Pulse Rate 84 Respiratory Rate 16 Blood Pressure 113/78 Pulse Oximetry 96 Oxygen Delivery Method Room Air Labs Labs: Laboratory Results - last 48 hr 08/18/23 07:35 Estimat Average Glucose 97 Hemoglobin A1c % 5.0 Magnesium 2.1 Triglycerides 115 Cholesterol 189 LDL Cholesterol, Calc 133 H HDL Cholesterol 33 L Vitamin B12 385 Folate 8.2 TSH 1.00 Free T4 1.29 Medications Medications Current Medications Acetaminophen (Acetaminophen 325 Mg Tablet) 650 mg PO Q6H PRN PRN Reason: Pain, Mild (Pain Scale 1-3) Al Hydroxide/Mg Hydroxide (Magnesium Hydrox/Alum Hydrox 30 Ml Oral.Susp) 30 ml PO Q6H PRN PRN Reason: Heartburn/Nausea Divalproex Sodium (Divalproex Sodium 250 Mg Tablet.Dr) 250 mg PO TID [facility] Last Admin: 08/19/23 09:19 Dose: 250 mg Docusate Sodium (Docusate Sodium 100 Mg Capsule) 100 mg PO DAILY PRN PRN Reason: Constipation Hydroxyzine HCl (Hydroxyzine Hcl 25 Mg Tablet) 25 mg PO Q6H PRN PRN Reason: Anxiety Last Admin: 08/19/23 04:19 Dose: 25 mg Magnesium Hydroxide (Milk Of Magnesia 30 Ml Oral.Susp) 30 ml PO DAILY PRN PRN Reason: Constipation Olanzapine (Olanzapine 5 Mg Tablet) 5 mg PO BID [facility] Last Admin: 08/19/23 09:19 Dose: 5 mg Olanzapine (Olanzapine 5 Mg Tablet) 5 mg PO BID PRN PRN Reason: lability, agitation Last Admin: 08/19/23 04:19 Dose: 5 mg Trazodone HCl (Trazodone Hcl 50 Mg Tablet) 50 mg PO BEDTIME MRX1 PRN PRN Reason: Insomnia Last Admin: 08/18/23 01:01 Dose: 50 mg Allergies Allergies Allergy/AdvReac Type Severity Reaction Status Date / Time latex Allergy Mild rash, hives Verified 09/28/21 15:36 Assessment & Plan Assessment & Plan (1) Schizoaffective disorder: Qualifiers: Schizoaffective disorder type: unspecified Qualified Code(s): F25.9 - Schizoaffective disorder, unspecified Status: Acute Code(s): F25.9 - Schizoaffective disorder, unspecified (2) Substance-induced psychotic disorder: Status: Resolved Code(s): F19.959 - Other psychoactive substance use, unspecified with psychoactive substance-induced psychotic disorder, unspecified (3) Borderline personality disorder: Status: Acute Code(s): F60.3 - Borderline personality disorder (4) PTSD (post-traumatic stress disorder): Status: Acute Code(s): F43.10 - Post-traumatic stress disorder, unspecified Plan 27 yo male to female. History of PTSD, schizoaffective disorder, borderline personality disorder, polysubstance use disorder, s/p OD in response to being asked to leave his home and having pending legal charges of sending his landlord inappropriate pictures over an extended period of time. Court date TBD in [place]. Plan: Couples meeting Depakote 250 mg tid Olanzapine 5 mg bid and 5 mg bid prn Collateral contact 08/19/23 Continue rx. Patient educated on: medication risk/benefits and therapeutic strategies Informed Consent: understands Reason for continued inpatient stay Substantial Risk for: rapid decompensation Time Spent With Patient Time: Total time managing care of this patient today ____ minutes.
[2023-08-19 18:00] VITALS: RESP 16
[2023-08-20 08:05] VITALS: BP 125/78; PULSE 91; RESP 18; TEMP 36.7; O2SAT 98
--- NOTE | 2023-08-20 13:28 | HO.PSYCHPN ---
Subjective Subjective Date of Service: 08/20/23 Reason For Visit: Overdose Interim History: Pt seen,discussed with team. Plan of care reviewed. Symptoms are intense, I should just go kill myself . Discussed feeling terrified of upcoming legal charges. Reports voices, [facility]. States he believes charges will be filed by 08/27 as [employer] will receive a package with a sexual toy around that time. He believes he will become a leveled offender and go to intermediate, I would rather . Discussed options however no charges have been filed, ?delusional process and content contributing to fear. Will add Prazosin at hs, increase Olanzapine and Ativan prn for anxiety. Medication Compliance: Yes Side effects from medications: No Attending Groups: No Review of Systems Acute medical concerns: No Medical Review of Systems: unchanged Mental Status Exam Mental Status Exam Patient Appearance: Fatigued Patient Orientation: Person, Place, Time and Situation Level of Consciousness: Alert Patient Behavior: Talkative, Suspicious and Good Eye Contact Mood Description: Withdrawn and Depressed Affect Description: Flat Patient Cognition Impaired: No Ability to Follow Directions: Fair Speech Pattern: Spontaneous Speech Memory Description: Episodic Impaired Hallucinations: Auditory (when using substances) Delusions: Not Present Perceptual Disturbances: Derealization Thought Process: Distracted and Rumination Thought Content: positive for Circumstantial and positive for Suicidal Ideation Depressive Symptoms: Difficulty Sleeping, Crying Spells, Feelings of Worthlessness, Hopelessness, Feelings of Guilt, Unhappiness, Increased Fatigue, Thoughts of /Suicide, Loss of Energy and Difficulty Concentrating Judgement: Poor Diagnostics Vital Signs (24Hr): Vital Signs - 24 hr 08/19/23 18:00 08/20/23 08:05 Temperature 98.0 F Pulse Rate 91 Respiratory Rate 16 18 Blood Pressure 125/78 Pulse Oximetry 98 Oxygen Delivery Method Room Air Medications Medications Current Medications Acetaminophen (Acetaminophen 325 Mg Tablet) 650 mg PO Q6H PRN PRN Reason: Pain, Mild (Pain Scale 1-3) Al Hydroxide/Mg Hydroxide (Magnesium Hydrox/Alum Hydrox 30 Ml Oral.Susp) 30 ml PO Q6H PRN PRN Reason: Heartburn/Nausea Divalproex Sodium (Divalproex Sodium 250 Mg Tablet.Dr) 250 mg PO TID [facility] Last Admin: 08/20/23 08:06 Dose: 250 mg Docusate Sodium (Docusate Sodium 100 Mg Capsule) 100 mg PO DAILY PRN PRN Reason: Constipation Hydroxyzine HCl (Hydroxyzine Hcl 25 Mg Tablet) 25 mg PO Q6H PRN PRN Reason: Anxiety Last Admin: 08/20/23 08:06 Dose: 25 mg Magnesium Hydroxide (Milk Of Magnesia 30 Ml Oral.Susp) 30 ml PO DAILY PRN PRN Reason: Constipation Olanzapine (Olanzapine 5 Mg Tablet) 5 mg PO BID [facility] Last Admin: 08/20/23 08:06 Dose: 5 mg Olanzapine (Olanzapine 5 Mg Tablet) 5 mg PO BID PRN PRN Reason: lability, agitation Last Admin: 08/20/23 08:16 Dose: 5 mg Trazodone HCl (Trazodone Hcl 50 Mg Tablet) 50 mg PO BEDTIME MRX1 PRN PRN Reason: Insomnia Last Admin: 08/18/23 01:01 Dose: 50 mg Allergies Allergies Allergy/AdvReac Type Severity Reaction Status Date / Time latex Allergy Mild rash, hives Verified 09/28/21 15:36 Assessment & Plan Assessment & Plan (1) Schizoaffective disorder: Qualifiers: Schizoaffective disorder type: unspecified Qualified Code(s): F25.9 - Schizoaffective disorder, unspecified Status: Acute Code(s): F25.9 - Schizoaffective disorder, unspecified (2) Substance-induced psychotic disorder: Status: Resolved Code(s): F19.959 - Other psychoactive substance use, unspecified with psychoactive substance-induced psychotic disorder, unspecified (3) Borderline personality disorder: Status: Acute Code(s): F60.3 - Borderline personality disorder (4) PTSD (post-traumatic stress disorder): Status: Acute Code(s): F43.10 - Post-traumatic stress disorder, unspecified Plan 27 yo male to female. History of PTSD, schizoaffective disorder, borderline personality disorder, polysubstance use disorder, s/p OD in response to being asked to leave his home and having pending legal charges of sending his landlord inappropriate pictures over an extended period of time. Court date TBD in [place]. Plan: Couples meeting Depakote 250 mg tid Olanzapine 5 mg bid and 5 mg bid prn Collateral contact 08/20/23 Increase Olanzapine to 10 mg bid Prazosin 2 mg HS Ativan prn Patient educated on: medication risk/benefits Informed Consent: understands Reason for continued inpatient stay Substantial Risk for: harm to self Time Spent With Patient Time: Total time managing care of this patient today ____ minutes.
--- NOTE | 2023-08-20 16:22 | MHC.RECOVRN ---
This life insurance underwriter met with patient, patient was resting when this life insurance underwriter entered room. Pt reports Meth use [employer]. Pt states when using Meth disassociates from body and goes by Daphine. Pt reports currently to be called [facility]. Pt reports goal of [facility]. Reviewed process of [facility]/TSS level of care, unsure if CSS/T[facility] will accept admission for Meth use. To be discussed with social work team. Pt reports no other substances used. Patient left with information about customer care team coach, BERTA. Pt reports review later, currently concerned with issues with [employer].
[2023-08-20 21:40] VITALS: BP 116/58; PULSE 75; TEMP 36.3
[2023-08-21 08:00] VITALS: BP 114/63; PULSE 90; RESP 16; TEMP 36.7; O2SAT 97
[2023-08-21 16:07] VITALS: BMI 25.4
--- NOTE | 2023-08-21 16:44 | HO.PSYCHPN ---
Subjective Subjective Date of Service: 08/21/23 Reason For Visit: Overdose Subjective Notes: Conditional Voluntary Healthcare Proxy: No Guardianship: No Interim History: Can you just discharge me so I can kill myself. Met with pt and Patricio IZQUIERDO. Discussed more details regarding precipitant to admission. Police report pt states is filed by Sharath Leonard Stephen [phone]. This was filed last week-There has been no interactions between pt and this man, however pt sent him a sexual gift that he believes will arrive by 08/27. Pt called the company who sent the gift to attempt to cancel this and was told it has already. arrived. Call to partner, Demian [phone] who reports full support for pt and suggests work on sobriety, medications and being consistent with a therapist. Demian affirms the police report against pt and states that as they have not heard anything since the filing that he suggests pt wait and continue to evaluate the situation for what intervention is needed. Medication Compliance: Yes Side effects from medications: No Attending Groups: No Review of Systems Acute medical concerns: No Medical Review of Systems: unchanged Mental Status Exam Mental Status Exam Patient Appearance: Fatigued Patient Orientation: Person, Place, Time and Situation Level of Consciousness: Alert Patient Behavior: Talkative, Suspicious and Good Eye Contact Mood Description: Withdrawn and Depressed Affect Description: Flat Patient Cognition Impaired: No Ability to Follow Directions: Fair Speech Pattern: Spontaneous Speech Memory Description: Episodic Impaired Hallucinations: Auditory (when using substances) Delusions: Not Present Perceptual Disturbances: Derealization Thought Process: Distracted and Rumination Thought Content: positive for Circumstantial and positive for Suicidal Ideation Depressive Symptoms: Difficulty Sleeping, Crying Spells, Feelings of Worthlessness, Hopelessness, Feelings of Guilt, Unhappiness, Increased Fatigue, Thoughts of /Suicide, Loss of Energy and Difficulty Concentrating Judgement: Poor Diagnostics Vital Signs (24Hr): Vital Signs - 24 hr 08/20/23 21:40 08/21/23 08:00 Temperature 97.4 F 98.1 F Pulse Rate 75 90 Respiratory Rate 16 Blood Pressure 116/58 L 114/63 Pulse Oximetry 97 Oxygen Delivery Method Room Air BMI result Body Mass Index 25.4 Medications Medications Current Medications Acetaminophen (Acetaminophen 325 Mg Tablet) 650 mg PO Q6H PRN PRN Reason: Pain, Mild (Pain Scale 1-3) Al Hydroxide/Mg Hydroxide (Magnesium Hydrox/Alum Hydrox 30 Ml Oral.Susp) 30 ml PO Q6H PRN PRN Reason: Heartburn/Nausea Divalproex Sodium (Divalproex Sodium 250 Mg Tablet.Dr) 250 mg PO TID [facility] Last Admin: 08/21/23 14:20 Dose: 250 mg Docusate Sodium (Docusate Sodium 100 Mg Capsule) 100 mg PO DAILY PRN PRN Reason: Constipation Hydroxyzine HCl (Hydroxyzine Hcl 25 Mg Tablet) 25 mg PO Q6H PRN PRN Reason: Anxiety Last Admin: 08/20/23 16:46 Dose: 25 mg Lorazepam (Lorazepam 1 Mg Tablet) 1 mg PO Q4H PRN PRN Reason: Anxiety Last Admin: 08/21/23 16:36 Dose: 1 mg Magnesium Hydroxide (Milk Of Magnesia 30 Ml Oral.Susp) 30 ml PO DAILY PRN PRN Reason: Constipation Olanzapine (Olanzapine 5 Mg Tablet) 5 mg PO BID PRN PRN Reason: lability, agitation Last Admin: 08/21/23 16:36 Dose: 5 mg Olanzapine (Olanzapine 10 Mg Tablet) 10 mg PO BID [facility] Last Admin: 08/21/23 09:31 Dose: 10 mg Prazosin HCl (Prazosin Hcl 1 Mg Capsule) 2 mg PO BEDTIME [facility]; Protocol Last Admin: 08/20/23 21:45 Dose: 2 mg Trazodone HCl (Trazodone Hcl 50 Mg Tablet) 50 mg PO BEDTIME MRX1 PRN PRN Reason: Insomnia Last Admin: 08/18/23 01:01 Dose: 50 mg Allergies Allergies Allergy/AdvReac Type Severity Reaction Status Date / Time latex Allergy Mild rash, hives Verified 09/28/21 15:36 Assessment & Plan Assessment & Plan (1) Schizoaffective disorder: Qualifiers: Schizoaffective disorder type: unspecified Qualified Code(s): F25.9 - Schizoaffective disorder, unspecified Status: Acute Code(s): F25.9 - Schizoaffective disorder, unspecified (2) Substance-induced psychotic disorder: Status: Resolved Code(s): F19.959 - Other psychoactive substance use, unspecified with psychoactive substance-induced psychotic disorder, unspecified (3) Borderline personality disorder: Status: Acute Code(s): F60.3 - Borderline personality disorder (4) PTSD (post-traumatic stress disorder): Status: Acute Code(s): F43.10 - Post-traumatic stress disorder, unspecified Plan 27 yo male to female. History of PTSD, schizoaffective disorder, borderline personality disorder, polysubstance use disorder, s/p OD in response to being asked to leave his home and having pending legal charges of sending his landlord inappropriate pictures over an extended period of time. Court date TBD in [place]. Plan: Couples meeting Depakote 250 mg tid Olanzapine 5 mg bid and 5 mg bid prn Collateral contact 08/20/23 Increase Olanzapine to 10 mg bid Prazosin 2 mg HS Ativan prn 08/21/23 Continue tx Patient educated on: therapeutic strategies Guardian/Caregiver educated on: therapeutic strategies Informed Consent: understands and further education needed Reason for continued inpatient stay Substantial Risk for: harm to self and rapid decompensation Time Spent With Patient Time: Total time managing care of this patient today ____ minutes.
--- NOTE | 2023-08-22 15:11 | HO.PSYCHPN ---
Subjective Subjective Date of Service: 08/22/23 Reason For Visit: Overdose Subjective Notes: Conditional Voluntary Healthcare Proxy: No Guardianship: No Medical Problems Affecting Mental Status: No Interim History: Remains suicidal in the context of fear of going to nursing home/becoming labeled as an offender. Increasing information about foundation of his actions/concerns he is providing Pt in need of legal arbitrator, team is reaching out to [facility], will discuss potential consult with hospital legal resources. Engaged in the process, yet hopeless, stating clearly he wants to discharge and suicide. Medication Compliance: Yes Side effects from medications: No Attending Groups: Yes Review of Systems Acute medical concerns: No Medical Review of Systems: unchanged Mental Status Exam Mental Status Exam Patient Appearance: Fatigued Patient Orientation: Person, Place, Time and Situation Level of Consciousness: Alert Patient Behavior: Talkative, Suspicious and Good Eye Contact Mood Description: Withdrawn and Depressed Affect Description: Flat Patient Cognition Impaired: No Ability to Follow Directions: Fair Speech Pattern: Spontaneous Speech Memory Description: Episodic Impaired Hallucinations: Auditory (when using substances) Delusions: Not Present Perceptual Disturbances: Derealization Thought Process: Distracted and Rumination Thought Content: positive for Circumstantial and positive for Suicidal Ideation Depressive Symptoms: Difficulty Sleeping, Crying Spells, Feelings of Worthlessness, Hopelessness, Feelings of Guilt, Unhappiness, Increased Fatigue, Thoughts of /Suicide, Loss of Energy and Difficulty Concentrating Judgement: Poor Diagnostics Vital Signs (24Hr): BMI result Body Mass Index 25.4 Medications Medications Current Medications Acetaminophen (Acetaminophen 325 Mg Tablet) 650 mg PO Q6H PRN PRN Reason: Pain, Mild (Pain Scale 1-3) Al Hydroxide/Mg Hydroxide (Magnesium Hydrox/Alum Hydrox 30 Ml Oral.Susp) 30 ml PO Q6H PRN PRN Reason: Heartburn/Nausea Divalproex Sodium (Divalproex Sodium 250 Mg Tablet.Dr) 250 mg PO TID [facility] Last Admin: 08/22/23 14:42 Dose: 250 mg Docusate Sodium (Docusate Sodium 100 Mg Capsule) 100 mg PO DAILY PRN PRN Reason: Constipation Hydroxyzine HCl (Hydroxyzine Hcl 25 Mg Tablet) 25 mg PO Q6H PRN PRN Reason: Anxiety Last Admin: 08/20/23 16:46 Dose: 25 mg Lorazepam (Lorazepam 1 Mg Tablet) 1 mg PO Q4H PRN PRN Reason: Anxiety Last Admin: 08/22/23 12:47 Dose: 1 mg Magnesium Hydroxide (Milk Of Magnesia 30 Ml Oral.Susp) 30 ml PO DAILY PRN PRN Reason: Constipation Olanzapine (Olanzapine 5 Mg Tablet) 5 mg PO BID PRN PRN Reason: lability, agitation Last Admin: 08/21/23 16:36 Dose: 5 mg Olanzapine (Olanzapine 10 Mg Tablet) 10 mg PO BID [facility] Last Admin: 08/22/23 08:52 Dose: 10 mg Prazosin HCl (Prazosin Hcl 1 Mg Capsule) 2 mg PO BEDTIME [facility]; Protocol Last Admin: 08/21/23 22:06 Dose: Not Given Trazodone HCl (Trazodone Hcl 50 Mg Tablet) 50 mg PO BEDTIME MRX1 PRN PRN Reason: Insomnia Last Admin: 08/18/23 01:01 Dose: 50 mg Allergies Allergies Allergy/AdvReac Type Severity Reaction Status Date / Time latex Allergy Mild rash, hives Verified 09/28/21 15:36 Assessment & Plan Assessment & Plan (1) Schizoaffective disorder: Qualifiers: Schizoaffective disorder type: unspecified Qualified Code(s): F25.9 - Schizoaffective disorder, unspecified Status: Acute Code(s): F25.9 - Schizoaffective disorder, unspecified (2) Substance-induced psychotic disorder: Status: Resolved Code(s): F19.959 - Other psychoactive substance use, unspecified with psychoactive substance-induced psychotic disorder, unspecified (3) Borderline personality disorder: Status: Acute Code(s): F60.3 - Borderline personality disorder (4) PTSD (post-traumatic stress disorder): Status: Acute Code(s): F43.10 - Post-traumatic stress disorder, unspecified Plan 27 yo male to female. History of PTSD, schizoaffective disorder, borderline personality disorder, polysubstance use disorder, s/p OD in response to being asked to leave his home and having pending legal charges of sending his landlord inappropriate pictures over an extended period of time. Court date TBD in [place]. Plan: Couples meeting Depakote 250 mg tid Olanzapine 5 mg bid and 5 mg bid prn Collateral contact 08/20/23 Increase Olanzapine to 10 mg bid Prazosin 2 mg HS Ativan prn 08/22/22 [place] Education Resource identification Continue current plan Engage [facility] Patient educated on: other Informed Consent: understands and further education needed Reason for continued inpatient stay Substantial Risk for: harm to self, inability to function and rapid decompensation Time Spent With Patient Time: Total time managing care of this patient today ____ minutes.
[2023-08-22 22:10] VITALS: BP 122/58; PULSE 92; TEMP 36.2
[2023-08-22] MEDS: Prazosin HCL 1 MG CAPSULE 2 MG PO (22:32)
[2023-08-22] MEDS: OLANZapine 10 MG TABLET PO (22:32)
[2023-08-22] MEDS: Divalproex Sodium 250 MG TABLET.DR PO (22:32)
[2023-08-23 08:00] VITALS: BP 127/69; PULSE 79; RESP 16; TEMP 36.1; O2SAT 99
[2023-08-23] MEDS: OLANZapine 10 MG TABLET PO ×2 (08:42→22:05)
[2023-08-23] MEDS: Divalproex Sodium 250 MG TABLET.DR PO ×3 (08:42→22:05)
[2023-08-23 10:21] VITALS: BMI 25.4
[2023-08-23] MEDS: LORazepam 1 MG TABLET PO (12:20)
--- NOTE | 2023-08-23 12:53 | HO.PSYCHPN ---
Subjective Subjective Date of Service: 08/23/23 Reason For Visit: Overdose Subjective Notes: Conditional Voluntary Interim History: Isolative in room. Reaching out to resources as team provides direction Continues with fear about care home, being labeled an offender Continues with DM encouraging pt to reach out to legal compliance officer. Medication Compliance: Yes Side effects from medications: No Attending Groups: No Review of Systems Acute medical concerns: No Medical Review of Systems: unchanged Mental Status Exam Mental Status Exam Patient Appearance: Fatigued Patient Orientation: Person, Place, Time and Situation Level of Consciousness: Alert Patient Behavior: Talkative, Suspicious and Good Eye Contact Mood Description: Withdrawn and Depressed Affect Description: Flat Patient Cognition Impaired: No Ability to Follow Directions: Fair Speech Pattern: Spontaneous Speech Memory Description: Episodic Impaired Hallucinations: Auditory (when using substances) Delusions: Not Present Perceptual Disturbances: Derealization Thought Process: Distracted and Rumination Thought Content: positive for Circumstantial and positive for Suicidal Ideation Depressive Symptoms: Difficulty Sleeping, Crying Spells, Feelings of Worthlessness, Hopelessness, Feelings of Guilt, Unhappiness, Increased Fatigue, Thoughts of /Suicide, Loss of Energy and Difficulty Concentrating Judgement: Poor Diagnostics Vital Signs (24Hr): Vital Signs - 24 hr 08/22/23 22:10 08/23/23 08:00 Temperature 97.1 F 97 F Pulse Rate 92 79 Respiratory Rate 16 Blood Pressure 122/58 L 127/69 Pulse Oximetry 99 Oxygen Delivery Method Room Air BMI result Body Mass Index 25.4 Medications Medications Current Medications Acetaminophen (Acetaminophen 325 Mg Tablet) 650 mg PO Q6H PRN PRN Reason: Pain, Mild (Pain Scale 1-3) Al Hydroxide/Mg Hydroxide (Magnesium Hydrox/Alum Hydrox 30 Ml Oral.Susp) 30 ml PO Q6H PRN PRN Reason: Heartburn/Nausea Divalproex Sodium (Divalproex Sodium 250 Mg Tablet.Dr) 250 mg PO TID [facility] Last Admin: 08/23/23 08:42 Dose: 250 mg Docusate Sodium (Docusate Sodium 100 Mg Capsule) 100 mg PO DAILY PRN PRN Reason: Constipation Hydroxyzine HCl (Hydroxyzine Hcl 25 Mg Tablet) 25 mg PO Q6H PRN PRN Reason: Anxiety Last Admin: 08/20/23 16:46 Dose: 25 mg Lorazepam (Lorazepam 1 Mg Tablet) 1 mg PO Q4H PRN PRN Reason: Anxiety Last Admin: 08/23/23 12:20 Dose: 1 mg Magnesium Hydroxide (Milk Of Magnesia 30 Ml Oral.Susp) 30 ml PO DAILY PRN PRN Reason: Constipation Olanzapine (Olanzapine 5 Mg Tablet) 5 mg PO BID PRN PRN Reason: lability, agitation Last Admin: 08/22/23 15:52 Dose: 5 mg Olanzapine (Olanzapine 10 Mg Tablet) 10 mg PO BID [facility] Last Admin: 08/23/23 08:42 Dose: 10 mg Prazosin HCl (Prazosin Hcl 1 Mg Capsule) 2 mg PO BEDTIME LO[facility]; Protocol Last Admin: 08/22/23 22:32 Dose: 2 mg Trazodone HCl (Trazodone Hcl 50 Mg Tablet) 50 mg PO BEDTIME MRX1 PRN PRN Reason: Insomnia Last Admin: 08/18/23 01:01 Dose: 50 mg Allergies Allergies Allergy/AdvReac Type Severity Reaction Status Date / Time latex Allergy Mild rash, hives Verified 09/28/21 15:36 Assessment & Plan Assessment & Plan (1) Schizoaffective disorder: Qualifiers: Schizoaffective disorder type: unspecified Qualified Code(s): F25.9 - Schizoaffective disorder, unspecified Status: Acute Code(s): F25.9 - Schizoaffective disorder, unspecified (2) Substance-induced psychotic disorder: Status: Resolved Code(s): F19.959 - Other psychoactive substance use, unspecified with psychoactive substance-induced psychotic disorder, unspecified (3) Borderline personality disorder: Status: Acute Code(s): F60.3 - Borderline personality disorder (4) PTSD (post-traumatic stress disorder): Status: Acute Code(s): F43.10 - Post-traumatic stress disorder, unspecified Plan 27 yo male to female. History of PTSD, schizoaffective disorder, borderline personality disorder, polysubstance use disorder, s/p OD in response to being asked to leave his home and having pending legal charges of sending his landlord inappropriate pictures over an extended period of time. Court date TBD in [place]. Plan: Couples meeting Depakote 250 mg tid Olanzapine 5 mg bid and 5 mg bid prn Collateral contact 08/20/23 Increase Olanzapine to 10 mg bid Prazosin 2 mg HS Ativan prn 08/21/23 Continue tx 08/23/23 Encourage increased involvement in milieu. CBCD Valproate Level Informed Consent: understands Reason for continued inpatient stay Substantial Risk for: harm to self, inability to function and rapid decompensation Time Spent With Patient Time: Total time managing care of this patient today ____ minutes.
[2023-08-24 06:00] VITALS: BP 155/68; PULSE 98; RESP 16; TEMP 36.6; O2SAT 98
[2023-08-24] MEDS: Divalproex Sodium 250 MG TABLET.DR PO ×3 (08:41→22:48)
[2023-08-24] MEDS: LORazepam 1 MG TABLET PO ×2 (08:41→12:03)
[2023-08-24] MEDS: OLANZapine 10 MG TABLET PO ×2 (08:41→22:48)
[2023-08-24 08:52] LABS: MANUAL DIFF FLAG NO
[2023-08-24 08:56] LABS: Basophils Percent Auto 0.4 % (0-2); Eosinophils Absolute Auto 0.3 X10*3/uL (0.0-0.4); Eosinophils Percent Auto 3.6 % (0-4); Hematocrit 42.4 % (42.0-52.0); Hemoglobin 14.3 g/dl (14.0-18.0); Imm Gran Abs Auto 0.06 X10*3/uL (0.00-0.03); Imm Gran Pct Auto 0.9 % (0.0-0.4); Lymphocytes Percent Auto 43.2 % (20-40); Mean Corpuscular HGB Conc 33.7 g/dl (31.0-36.0); Mean Corpuscular Volume 91.8 fL (80.0-98.0); Mean Platelet Volume 10.4 fL (9.4-12.4); Monocytes Absolute Auto 0.5 X10*3/uL (0.1-1.2); Monocytes Percent Auto 7.1 % (2-11); Neutrophils Absolute Auto 3.1 x10*3/uL (2.0-8.3); Neutrophils Percent Auto 44.8 % (45-73); Platelet Count 282 X10*3/uL (160-400); Red Blood Count 4.62 X10*6/uL (4.60-5.80); White Blood Count 6.9 X10*3/uL (4.8-10.8)
[2023-08-24 09:21] LABS: Valproate 67.8 mcg/mL (50.0-100.0)
--- NOTE | 2023-08-24 09:55 | P.PNPSI_ITS ---
Subjective Subjective Date of Service: 08/24/23 Reason For Visit: Overdose Interim History: met with patient; discussed with team; reviewed notes pt lying in bed, reading a book; he says he still has SI which comes in goes and fluctuates in intensity; does not want any med changes. Mental Status Exam Mental Status Exam Patient Appearance: Fatigued Patient Orientation: Person, Place, Time and Situation Level of Consciousness: Alert Patient Behavior: Talkative, Suspicious and Good Eye Contact Mood Description: Withdrawn and Depressed Affect Description: Flat Patient Cognition Impaired: No Ability to Follow Directions: Fair Speech Pattern: Spontaneous Speech Memory Description: Episodic Impaired Hallucinations: Auditory (when using substances) Delusions: Not Present Perceptual Disturbances: Derealization Thought Process: Distracted and Rumination Thought Content: positive for Circumstantial and positive for Suicidal Ideation Depressive Symptoms: Difficulty Sleeping, Crying Spells, Feelings of Worthlessness, Hopelessness, Feelings of Guilt, Unhappiness, Increased Fatigue, Thoughts of /Suicide, Loss of Energy and Difficulty Concentrating Judgement: Poor Diagnostics Vital Signs (24Hr): Vital Signs - 24 hr 08/24/23 06:00 Temperature 98 F Pulse Rate 98 Respiratory Rate 16 Blood Pressure 155/68 H Pulse Oximetry 98 Oxygen Delivery Method Room Air BMI result Body Mass Index 25.4 Labs 08/24/23 08:00 Labs: Laboratory Results - last 48 hr 08/24/23 08:00 WBC 6.9 RBC 4.62 Hgb 14.3 Hct 42.4 MCV 91.8 MCH 31.0 MCHC 33.7 RDW 13.0 Plt Count 282 D MPV 10.4 Immature Gran % (Auto) 0.9 H Neut % (Auto) 44.8 L Lymph % (Auto) 43.2 H [place] % (Auto) 7.1 Eos % (Auto) 3.6 Baso % (Auto) 0.4 Lymph # (Auto) 3.0 [place] # (Auto) 0.5 Eos # (Auto) 0.3 Baso # (Auto) 0.0 Abs Immat Gran (auto) 0.06 H Absolute Neuts (auto) 3.1 Absolute Nucleated RBC 0.000 Nucleated RBC % (auto) 0.0 Valproic Acid 67.8 Medications Medications Current Medications Acetaminophen (Acetaminophen 325 Mg Tablet) 650 mg PO Q6H PRN PRN Reason: Pain, Mild (Pain Scale 1-3) Al Hydroxide/Mg Hydroxide (Magnesium Hydrox/Alum Hydrox 30 Ml Oral.Susp) 30 ml PO Q6H PRN PRN Reason: Heartburn/Nausea Divalproex Sodium (Divalproex Sodium 250 Mg Tablet.Dr) 250 mg PO TID [facility] Last Admin: 08/24/23 08:41 Dose: 250 mg Docusate Sodium (Docusate Sodium 100 Mg Capsule) 100 mg PO DAILY PRN PRN Reason: Constipation Hydroxyzine HCl (Hydroxyzine Hcl 25 Mg Tablet) 25 mg PO Q6H PRN PRN Reason: Anxiety Last Admin: 08/20/23 16:46 Dose: 25 mg Lorazepam (Lorazepam 1 Mg Tablet) 1 mg PO Q4H PRN PRN Reason: Anxiety Last Admin: 08/24/23 08:41 Dose: 1 mg Magnesium Hydroxide (Milk Of Magnesia 30 Ml Oral.Susp) 30 ml PO DAILY PRN PRN Reason: Constipation Olanzapine (Olanzapine 5 Mg Tablet) 5 mg PO BID PRN PRN Reason: lability, agitation Last Admin: 08/22/23 15:52 Dose: 5 mg Olanzapine (Olanzapine 10 Mg Tablet) 10 mg PO BID LO[facility] Last Admin: 08/24/23 08:41 Dose: 10 mg Prazosin HCl (Prazosin Hcl 1 Mg Capsule) 2 mg PO BEDTIME LO[facility]; Protocol Last Admin: 08/23/23 22:10 Dose: Not Given Trazodone HCl (Trazodone Hcl 50 Mg Tablet) 50 mg PO BEDTIME MRX1 PRN PRN Reason: Insomnia Last Admin: 08/18/23 01:01 Dose: 50 mg Allergies Allergies Allergy/AdvReac Type Severity Reaction Status Date / Time latex Allergy Mild rash, hives Verified 09/28/21 15:36 Assessment & Plan Assessment & Plan (1) Schizoaffective disorder: Qualifiers: Schizoaffective disorder type: unspecified Qualified Code(s): F25.9 - Schizoaffective disorder, unspecified Status: Inactive Code(s): F25.9 - Schizoaffective disorder, unspecified (2) Substance-induced psychotic disorder: Status: Resolved Code(s): F19.959 - Other psychoactive substance use, unspecified with psychoactive substance-induced psychotic disorder, unspecified (3) Borderline personality disorder: Status: Acute Code(s): F60.3 - Borderline personality disorder (4) PTSD (post-traumatic stress disorder): Status: Acute Code(s): F43.10 - Post-traumatic stress disorder, unspecified Plan 27 yo male to female. History of PTSD, schizoaffective disorder, borderline personality disorder, polysubstance use disorder, s/p OD in response to being asked to leave his home and having pending legal charges of sending his landlord inappropriate pictures over an extended period of time. Court date TBD in [place]. Plan: Couples meeting Depakote 250 mg tid Olanzapine 5 mg bid and 5 mg bid prn Collateral contact 08/20/23 Increase Olanzapine to 10 mg bid Prazosin 2 mg HS Ativan prn 08/21/23 Continue tx 08/23/23 Encourage increased involvement in milieu. CBCD Valproate Level 08/24 continue current tx plan Patient educated on: diagnosis and medication risk/benefits Informed Consent: understands Reason for continued inpatient stay Substantial Risk for: rapid decompensation Time Spent With Patient Time: Total time managing care of this patient today ____ minutes.
[2023-08-24] MEDS: OLANZapine 5 MG TABLET PO (12:03)
[2023-08-24] MEDS: hydrOXYzine HCL 25 MG TABLET PO (12:03)
[2023-08-24 22:35] VITALS: BP 115/56; PULSE 79; TEMP 36.4; O2SAT 98
[2023-08-24] MEDS: Prazosin HCL 1 MG CAPSULE 2 MG PO (22:48)
[2023-08-25 08:32] VITALS: BP 119/66; PULSE 98; RESP 16; TEMP 36.7; O2SAT 97
[2023-08-25] MEDS: Divalproex Sodium 250 MG TABLET.DR PO ×3 (08:39→23:01)
[2023-08-25] MEDS: OLANZapine 10 MG TABLET PO ×2 (08:39→23:01)
[2023-08-25] MEDS: LORazepam 1 MG TABLET PO ×2 (08:57→17:05)
[2023-08-25] MEDS: OLANZapine 5 MG TABLET PO (17:05)
--- NOTE | 2023-08-25 20:26 | P.PNPSI_ITS ---
Subjective Subjective Date of Service: 08/25/23 Reason For Visit: Overdose Interim History: pt depressed, continues to have SI; worrying about legal issues. isolative Medication Compliance: Yes Side effects from medications: No Attending Groups: No Review of Systems Acute medical concerns: No Review of Systems Review of Systems no change Mental Status Exam Mental Status Exam Patient Appearance: Fatigued Patient Orientation: Person, Place, Time and Situation Level of Consciousness: Alert Patient Behavior: Talkative, Suspicious and Good Eye Contact Mood Description: Withdrawn and Depressed Affect Description: Flat Patient Cognition Impaired: No Ability to Follow Directions: Fair Speech Pattern: Spontaneous Speech Memory Description: Episodic Impaired Thought Process: Distracted and Rumination Thought Content: positive for Preoccupation and positive for Suicidal Ideation Judgement: Poor Diagnostics Vital Signs (24Hr): Vital Signs - 24 hr 08/24/23 22:35 08/25/23 08:32 Temperature 97.6 F 98.1 F Pulse Rate 79 98 Respiratory Rate 16 Blood Pressure 115/56 L 119/66 Pulse Oximetry 98 97 Oxygen Delivery Method Room Air Room Air BMI result Body Mass Index 25.4 Labs 08/24/23 08:00 Labs: Laboratory Results - last 48 hr 08/24/23 08:00 WBC 6.9 RBC 4.62 Hgb 14.3 Hct 42.4 MCV 91.8 MCH 31.0 MCHC 33.7 RDW 13.0 Plt Count 282 D MPV 10.4 Immature Gran % (Auto) 0.9 H Neut % (Auto) 44.8 L Lymph % (Auto) 43.2 H [place] % (Auto) 7.1 Eos % (Auto) 3.6 Baso % (Auto) 0.4 Lymph # (Auto) 3.0 [place] # (Auto) 0.5 Eos # (Auto) 0.3 Baso # (Auto) 0.0 Abs Immat Gran (auto) 0.06 H Absolute Neuts (auto) 3.1 Absolute Nucleated RBC 0.000 Nucleated RBC % (auto) 0.0 Valproic Acid 67.8 Medications Medications Current Medications Acetaminophen (Acetaminophen 325 Mg Tablet) 650 mg PO Q6H PRN PRN Reason: Pain, Mild (Pain Scale 1-3) Al Hydroxide/Mg Hydroxide (Magnesium Hydrox/Alum Hydrox 30 Ml Oral.Susp) 30 ml PO Q6H PRN PRN Reason: Heartburn/Nausea Divalproex Sodium (Divalproex Sodium 250 Mg Tablet.) 250 mg PO TID [facility] Last Admin: 08/25/23 15:39 Dose: 250 mg Docusate Sodium (Docusate Sodium 100 Mg Capsule) 100 mg PO DAILY PRN PRN Reason: Constipation Hydroxyzine HCl (Hydroxyzine Hcl 25 Mg Tablet) 25 mg PO Q6H PRN PRN Reason: Anxiety Last Admin: 08/24/23 12:03 Dose: 25 mg Magnesium Hydroxide (Milk Of Magnesia 30 Ml Oral.Susp) 30 ml PO DAILY PRN PRN Reason: Constipation Olanzapine (Olanzapine 5 Mg Tablet) 5 mg PO BID PRN PRN Reason: lability, agitation Last Admin: 08/25/23 17:05 Dose: 5 mg Olanzapine (Olanzapine 10 Mg Tablet) 10 mg PO BID LO[facility] Last Admin: 08/25/23 08:39 Dose: 10 mg Prazosin HCl (Prazosin Hcl 1 Mg Capsule) 2 mg PO BEDTIME LO[facility]; Protocol Last Admin: 08/24/23 22:48 Dose: 2 mg Trazodone HCl (Trazodone Hcl 50 Mg Tablet) 50 mg PO BEDTIME MRX1 PRN PRN Reason: Insomnia Last Admin: 08/18/23 01:01 Dose: 50 mg Allergies Allergies Allergy/AdvReac Type Severity Reaction Status Date / Time latex Allergy Mild rash, hives Verified 09/28/21 15:36 Assessment & Plan Assessment & Plan (1) Schizoaffective disorder: Qualifiers: Schizoaffective disorder type: unspecified Qualified Code(s): F25.9 - Schizoaffective disorder, unspecified Status: Inactive Code(s): F25.9 - Schizoaffective disorder, unspecified (2) Substance-induced psychotic disorder: Status: Resolved Code(s): F19.959 - Other psychoactive substance use, unspecified with psychoactive substance-induced psychotic disorder, unspecified (3) Borderline personality disorder: Status: Acute Code(s): F60.3 - Borderline personality disorder (4) PTSD (post-traumatic stress disorder): Status: Acute Code(s): F43.10 - Post-traumatic stress disorder, unspecified Plan 27 yo male to female. History of PTSD, schizoaffective disorder, borderline personality disorder, polysubstance use disorder, s/p OD in response to being asked to leave his home and having pending legal charges of sending his landlord inappropriate pictures over an extended period of time. Court date TBD in [place]. Plan: Couples meeting Depakote 250 mg tid Olanzapine 5 mg bid and 5 mg bid prn Collateral contact 08/20/23 Increase Olanzapine to 10 mg bid Prazosin 2 mg HS Ativan prn 08/21/23 Continue tx 08/23/23 Encourage increased involvement in milieu. CBCD Valproate Level 08/25 continue current treatment plan continue 5 min checks Reason for continued inpatient stay Substantial Risk for: harm to self, inability to function and rapid decompensation Time Spent With Patient Time: Total time managing care of this patient today ____ minutes.
[2023-08-26] MEDS: hydrOXYzine HCL 25 MG TABLET PO (08:41)
[2023-08-26] MEDS: OLANZapine 10 MG TABLET PO (08:41)
[2023-08-26] MEDS: Divalproex Sodium 250 MG TABLET.DR PO ×3 (08:41→22:22)
[2023-08-26 08:52] VITALS: BP 137/63; PULSE 99; RESP 16; TEMP 36.2; O2SAT 98
[2023-08-26] MEDS: LORazepam 1 MG TABLET PO ×2 (10:45→16:15)
--- NOTE | 2023-08-26 10:57 | HO.PSYCHPN ---
Subjective Subjective Date of Service: 08/26/23 Reason For Visit: Overdose Subjective Notes: Conditional Voluntary Interim History: pt depressed, continues to have strong SI; ptreports constant critical voices and thoughts; reports racing thoughts; worrying about legal issues. isolative Medication Compliance: Yes Side effects from medications: No Attending Groups: No Review of Systems Acute medical concerns: No Medical Review of Systems: unchanged Review of Systems Review of Systems no change Mental Status Exam Mental Status Exam Patient Appearance: Fatigued Patient Orientation: Person, Place, Time and Situation Level of Consciousness: Alert Patient Behavior: Talkative, Suspicious and Good Eye Contact Mood Description: Withdrawn and Depressed Affect Description: Flat Patient Cognition Impaired: No Ability to Follow Directions: Fair Speech Pattern: Spontaneous Speech Memory Description: Episodic Impaired Hallucinations: Auditory Judgement: Poor Diagnostics Vital Signs (24Hr): Vital Signs - 24 hr 08/26/23 08:52 Temperature 97.2 F Pulse Rate 99 Respiratory Rate 16 Blood Pressure 137/63 Pulse Oximetry 98 Oxygen Delivery Method Room Air BMI result Body Mass Index 25.4 Labs 08/24/23 08:00 Medications Medications Current Medications Acetaminophen (Acetaminophen 325 Mg Tablet) 650 mg PO Q6H PRN PRN Reason: Pain, Mild (Pain Scale 1-3) Al Hydroxide/Mg Hydroxide (Magnesium Hydrox/Alum Hydrox 30 Ml Oral.Susp) 30 ml PO Q6H PRN PRN Reason: Heartburn/Nausea Divalproex Sodium (Divalproex Sodium 250 Mg Tablet.Dr) 250 mg PO TID [facility] Last Admin: 08/26/23 08:41 Dose: 250 mg Docusate Sodium (Docusate Sodium 100 Mg Capsule) 100 mg PO DAILY PRN PRN Reason: Constipation Hydroxyzine HCl (Hydroxyzine Hcl 25 Mg Tablet) 25 mg PO Q6H PRN PRN Reason: Anxiety Last Admin: 08/26/23 08:41 Dose: 25 mg Lorazepam (Lorazepam 1 Mg Tablet) 1 mg PO Q4H PRN PRN Reason: Anxiety Last Admin: 08/26/23 10:45 Dose: 1 mg Magnesium Hydroxide (Milk Of Magnesia 30 Ml Oral.Susp) 30 ml PO DAILY PRN PRN Reason: Constipation Olanzapine (Olanzapine 5 Mg Tablet) 5 mg PO BID PRN PRN Reason: lability, agitation Last Admin: 08/25/23 17:05 Dose: 5 mg Olanzapine (Olanzapine 10 Mg Tablet) 10 mg PO BID [facility] Last Admin: 08/26/23 08:41 Dose: 10 mg Prazosin HCl (Prazosin Hcl 1 Mg Capsule) 2 mg PO BEDTIME [facility]; Protocol Last Admin: 08/25/23 23:02 Dose: Not Given Trazodone HCl (Trazodone Hcl 50 Mg Tablet) 50 mg PO BEDTIME MRX1 PRN PRN Reason: Insomnia Last Admin: 08/18/23 01:01 Dose: 50 mg Allergies Allergies Allergy/AdvReac Type Severity Reaction Status Date / Time latex Allergy Mild rash, hives Verified 09/28/21 15:36 Assessment & Plan Assessment & Plan (1) Schizoaffective disorder: Qualifiers: Schizoaffective disorder type: unspecified Qualified Code(s): F25.9 - Schizoaffective disorder, unspecified Status: Inactive Code(s): F25.9 - Schizoaffective disorder, unspecified (2) Substance-induced psychotic disorder: Status: Resolved Code(s): F19.959 - Other psychoactive substance use, unspecified with psychoactive substance-induced psychotic disorder, unspecified (3) Borderline personality disorder: Status: Acute Code(s): F60.3 - Borderline personality disorder (4) PTSD (post-traumatic stress disorder): Status: Acute Code(s): F43.10 - Post-traumatic stress disorder, unspecified Plan 27 yo male to female. History of PTSD, schizoaffective disorder, borderline personality disorder, polysubstance use disorder, s/p OD in response to being asked to leave his home and having pending legal charges of sending his landlord inappropriate pictures over an extended period of time. Court date TBD in [place]. Plan: Couples meeting Depakote 250 mg tid Olanzapine 5 mg bid and 5 mg bid prn Collateral contact 08/20/23 Increase Olanzapine to 10 mg bid Prazosin 2 mg HS Ativan prn 08/21/23 Continue tx 08/23/23 Encourage increased involvement in milieu. CBCD Valproate Level 08/25 continue current treatment plan continue 5 min checks 08/26 increase zyprexa to 15mg BID Reason for continued inpatient stay Substantial Risk for: harm to self, inability to function and rapid decompensation Time Spent With Patient Time: Total time managing care of this patient today ____ minutes.
--- NOTE | 2023-08-26 13:08 | PC.NURSE ---
pt agreed to release $20 fro his belongings to boyfriend. Belongings sheet updated in chart.
[2023-08-26] MEDS: OLANZapine 5 MG TABLET PO (17:18)
[2023-08-26] MEDS: OLANZapine 7.5 MG TABLET 15 MG PO (22:22)
[2023-08-26] MEDS: Prazosin HCL 1 MG CAPSULE 2 MG PO (22:22)
[2023-08-27] MEDS: Divalproex Sodium 250 MG TABLET.DR PO ×2 (08:08→13:52)
[2023-08-27] MEDS: OLANZapine 7.5 MG TABLET 15 MG PO (08:08)
[2023-08-27 08:49] VITALS: BP 100/59; PULSE 106; RESP 16; TEMP 36.2; O2SAT 98
[2023-08-27] MEDS: LORazepam 1 MG TABLET PO ×2 (09:24→14:26)
--- NOTE | 2023-08-27 09:33 | P.PNPSI_ITS ---
Subjective Subjective Date of Service: 08/27/23 Reason For Visit: Overdose Subjective Notes: Conditional Voluntary Interim History: Reviewed in team and . Patient presents guarded, isolative. Patient reports ongoing suicidal ideation. Pt stated, I'm still having strong suicidal thoughts to overdose on heroin. I have suicidal thoughts normally but it's higher now . denies HI/VH/AH. Medication Compliance: Yes Side effects from medications: No Attending Groups: No Review of Systems Constitutional: Reports as per HPI Eyes: Reports as per HPI Reports as per HPI Cardiovascular: Reports as per HPI Respiratory: Reports as per HPI Gastrointestinal: Reports as per HPI Genitourinary: Reports as per HPI Musculoskeletal: Reports as per HPI Skin/Breast: Reports as per HPI Reports as per HPI Psychiatric: Reports as per HPI Endocrine: Reports as per HPI Hematologic/Lymphatic: Reports as per HPI Allergic/Immunologic: Reports as per HPI Mental Status Exam Mental Status Exam Narrative: Pt is alert and oriented; behavior is guarded and calm; dressed in casual attire; mood is described as depressed ; eye contact appropriate; Speech is normal rate, volume and prosody and not pressured; no psychomotor agitation/retardation present; thought process is organized and goal directed; Thought content is on tx; otherwise pertinent to relevant topics and without any delusional content, paranoid ideations or grandiosity; denies HI. Pt reports suicidal ideation with plan to OD on heroin. There is no evidence of perceptual disturbance. Patients insight and judgment are poor. Diagnostics Vital Signs (24Hr): Vital Signs - 24 hr 08/27/23 08:49 Temperature 97.1 F Pulse Rate 106 H Respiratory Rate 16 Blood Pressure 100/59 L Pulse Oximetry 98 Oxygen Delivery Method Room Air BMI result Body Mass Index 25.4 Labs 08/24/23 08:00 Medications Medications Current Medications Acetaminophen (Acetaminophen 325 Mg Tablet) 650 mg PO Q6H PRN PRN Reason: Pain, Mild (Pain Scale 1-3) Al Hydroxide/Mg Hydroxide (Magnesium Hydrox/Alum Hydrox 30 Ml Oral.Susp) 30 ml PO Q6H PRN PRN Reason: Heartburn/Nausea Divalproex Sodium (Divalproex Sodium 250 Mg Tablet.Dr) 250 mg PO TID [facility] Last Admin: 08/27/23 08:08 Dose: 250 mg Docusate Sodium (Docusate Sodium 100 Mg Capsule) 100 mg PO DAILY PRN PRN Reason: Constipation Hydroxyzine HCl (Hydroxyzine Hcl 25 Mg Tablet) 25 mg PO Q6H PRN PRN Reason: Anxiety Last Admin: 08/26/23 08:41 Dose: 25 mg Lorazepam (Lorazepam 1 Mg Tablet) 1 mg PO Q4H PRN PRN Reason: Anxiety Last Admin: 08/27/23 09:24 Dose: 1 mg Magnesium Hydroxide (Milk Of Magnesia 30 Ml Oral.Susp) 30 ml PO DAILY PRN PRN Reason: Constipation Olanzapine (Olanzapine 5 Mg Tablet) 5 mg PO BID PRN PRN Reason: lability, agitation Last Admin: 08/26/23 17:18 Dose: 5 mg Olanzapine (Olanzapine 7.5 Mg Tablet) 15 mg PO BID [facility] Last Admin: 08/27/23 08:08 Dose: 15 mg Prazosin HCl (Prazosin Hcl 1 Mg Capsule) 2 mg PO BEDTIME [facility]; Protocol Last Admin: 08/26/23 22:22 Dose: 2 mg Trazodone HCl (Trazodone Hcl 50 Mg Tablet) 50 mg PO BEDTIME MRX1 PRN PRN Reason: Insomnia Last Admin: 08/18/23 01:01 Dose: 50 mg Allergies Allergies Allergy/AdvReac Type Severity Reaction Status Date / Time latex Allergy Mild rash, hives Verified 09/28/21 15:36 Assessment & Plan Assessment & Plan (1) Schizoaffective disorder: Qualifiers: Schizoaffective disorder type: unspecified Qualified Code(s): F25.9 - Schizoaffective disorder, unspecified Status: Inactive Code(s): F25.9 - Schizoaffective disorder, unspecified (2) Substance-induced psychotic disorder: Status: Resolved Code(s): F19.959 - Other psychoactive substance use, unspecified with psychoactive substance-induced psychotic disorder, unspecified (3) Borderline personality disorder: Status: Acute Code(s): F60.3 - Borderline personality disorder (4) PTSD (post-traumatic stress disorder): Status: Acute Code(s): F43.10 - Post-traumatic stress disorder, unspecified Plan 27 yo male to female. History of PTSD, schizoaffective disorder, borderline personality disorder, polysubstance use disorder, s/p OD in response to being asked to leave his home and having pending legal charges of sending his landlord inappropriate pictures over an extended period of time. Court date TBD in [place]. Plan: Couples meeting Depakote 250 mg tid Olanzapine 5 mg bid and 5 mg bid prn Collateral contact 08/20/23 Increase Olanzapine to 10 mg bid Prazosin 2 mg HS Ativan prn 08/21/23 Continue tx 08/23/23 Encourage increased involvement in milieu. CBCD Valproate Level 08/25 continue current treatment plan continue 5 min checks 08/27: Patient presents guarded, isolative. Patient reports ongoing suicidal ideation. Pt stated, I'm still having strong suicidal thoughts to overdose on heroin. I have suicidal thoughts normally but it's higher now . denies HI/VH/AH. Continue current tx plan. Patient educated on: diagnosis and medication risk/benefits Informed Consent: understands Reason for continued inpatient stay Substantial Risk for: harm to self and med/psych decompensation Time Spent With Patient Time: Total time managing care of this patient today _30___ minutes.
[2023-08-27] MEDS: OLANZapine 5 MG TABLET PO (12:30)
[2023-08-27 18:00] VITALS: RESP 16
[2023-08-28 08:17] VITALS: BP 134/61; PULSE 88; RESP 16; TEMP 36.8; O2SAT 98
[2023-08-28] MEDS: OLANZapine 7.5 MG TABLET 15 MG PO ×2 (08:47→21:27)
[2023-08-28] MEDS: Divalproex Sodium 250 MG TABLET.DR PO ×3 (08:47→21:28)
[2023-08-28] MEDS: LORazepam 1 MG TABLET PO ×2 (08:47→14:58)
--- NOTE | 2023-08-28 16:35 | HO.PSYCHPN ---
Subjective Subjective Date of Service: 08/28/23 Reason For Visit: Overdose Subjective Notes: Conditional Voluntary Healthcare Proxy: No Guardianship: No Medical Problems Affecting Mental Status: No Interim History: Pt seen, discussed with team. Plan of care reviewed. Discussed discharge plan for [facility] on 08/29. Able to contract for safety-reports he has heard nothing from police regarding charges. States partner will support him through this time if charges are filed. Letter drafted for pt should these issues further develop discussing command hallucinations and symptoms with substance use prior to admission motivating his actions. Reports feeling support and relief. He is anticipating [facility] and the assistance he will receive there to continue sobriety. Medication Compliance: Yes Side effects from medications: No Attending Groups: Intermittent Review of Systems Acute medical concerns: No Medical Review of Systems: unchanged Mental Status Exam Mental Status Exam Patient Appearance: Appropriate Patient Orientation: Person, Place, Time and Situation Level of Consciousness: Alert Patient Behavior: Talkative and Good Eye Contact Mood Description: Appropriate and Apprehensive Affect Description: Apprehensive Patient Cognition Impaired: No Ability to Follow Directions: Good Speech Pattern: Spontaneous Speech Memory Description: Episodic Impaired Hallucinations: None Delusions: Not Present Perceptual Disturbances: Depersonalization and Derealization Thought Process: Intact and Goal Oriented Thought Content: positive for Intact and positive for Goal Oriented Depressive Symptoms: Increased Anxiety Judgement: Good Diagnostics Vital Signs (24Hr): Vital Signs - 24 hr 08/27/23 18:00 08/28/23 08:17 Temperature 98.2 F Pulse Rate 88 Respiratory Rate 16 16 Blood Pressure 134/61 Pulse Oximetry 98 Oxygen Delivery Method Room Air BMI result Body Mass Index 25.4 Labs 08/24/23 08:00 Medications Medications Current Medications Acetaminophen (Acetaminophen 325 Mg Tablet) 650 mg PO Q6H PRN PRN Reason: Pain, Mild (Pain Scale 1-3) Al Hydroxide/Mg Hydroxide (Magnesium Hydrox/Alum Hydrox 30 Ml Oral.Susp) 30 ml PO Q6H PRN PRN Reason: Heartburn/Nausea Divalproex Sodium (Divalproex Sodium 250 Mg Tablet.Dr) 250 mg PO TID LOIS Last Admin: 08/28/23 14:20 Dose: 250 mg Docusate Sodium (Docusate Sodium 100 Mg Capsule) 100 mg PO DAILY PRN PRN Reason: Constipation Hydroxyzine HCl (Hydroxyzine Hcl 25 Mg Tablet) 25 mg PO Q6H PRN PRN Reason: Anxiety Last Admin: 08/26/23 08:41 Dose: 25 mg Lorazepam (Lorazepam 1 Mg Tablet) 1 mg PO Q4H PRN PRN Reason: Anxiety Last Admin: 08/28/23 14:58 Dose: 1 mg Magnesium Hydroxide (Milk Of Magnesia 30 Ml Oral.Susp) 30 ml PO DAILY PRN PRN Reason: Constipation Olanzapine (Olanzapine 5 Mg Tablet) 5 mg PO BID PRN PRN Reason: lability, agitation Last Admin: 08/27/23 12:30 Dose: 5 mg Olanzapine (Olanzapine 7.5 Mg Tablet) 15 mg PO BID LOIS Last Admin: 08/28/23 08:47 Dose: 15 mg Prazosin HCl (Prazosin Hcl 1 Mg Capsule) 2 mg PO BEDTIME LOIS; Protocol Last Admin: 08/27/23 22:46 Dose: Not Given Trazodone HCl (Trazodone Hcl 50 Mg Tablet) 50 mg PO BEDTIME MRX1 PRN PRN Reason: Insomnia Last Admin: 08/18/23 01:01 Dose: 50 mg Allergies Allergies Allergy/AdvReac Type Severity Reaction Status Date / Time latex Allergy Mild rash, hives Verified 09/28/21 15:36 Assessment & Plan Assessment & Plan (1) Schizoaffective disorder: Qualifiers: Schizoaffective disorder type: unspecified Qualified Code(s): F25.9 - Schizoaffective disorder, unspecified Status: Inactive Code(s): F25.9 - Schizoaffective disorder, unspecified (2) Substance-induced psychotic disorder: Status: Resolved Code(s): F19.959 - Other psychoactive substance use, unspecified with psychoactive substance-induced psychotic disorder, unspecified (3) Borderline personality disorder: Status: Acute Code(s): F60.3 - Borderline personality disorder (4) PTSD (post-traumatic stress disorder): Status: Acute Code(s): F43.10 - Post-traumatic stress disorder, unspecified Plan 27 yo male to female. History of PTSD, schizoaffective disorder, borderline personality disorder, polysubstance use disorder, s/p OD in response to being asked to leave his home and having pending legal charges of sending his landlord inappropriate pictures over an extended period of time. Court date TBD in [place]. Plan: Couples meeting Depakote 250 mg tid Olanzapine 5 mg bid and 5 mg bid prn Collateral contact 08/20/23 Increase Olanzapine to 10 mg bid Prazosin 2 mg HS Ativan prn 08/21/23 Continue tx 08/23/23 Encourage increased involvement in milieu. CBCD Valproate Level 08/25 continue current treatment plan continue 5 min checks 08/27: Patient presents guarded, isolative. Patient reports ongoing suicidal ideation. Pt stated, I'm still having strong suicidal thoughts to overdose on heroin. I have suicidal thoughts normally but it's higher now . denies HI/VH/AH. Continue current tx plan. 08/28/23 Continue current regime and plan of care. Denies SI. Plans [facility] transfer on 08/29. Able to contract for safety in going to the program. Patient educated on: therapeutic strategies Informed Consent: understands Reason for continued inpatient stay Substantial Risk for: stable for discharge Time Spent With Patient Time: Total time managing care of this patient today ____ minutes.
[2023-08-28] MEDS: Prazosin HCL 1 MG CAPSULE 2 MG PO (21:27)
[2023-08-29] MEDS: OLANZapine 7.5 MG TABLET 15 MG PO (08:48)
[2023-08-29] MEDS: Divalproex Sodium 250 MG TABLET.DR PO (08:49)
--- NOTE | 2023-08-29 15:47 | PM.PSYDC ---
DS: Providers Provider Date of Service: 08/29/23 Date of admission: 08/17/23 23:22 Date of discharge: 08/29/23 Primary care physician: Daniella Physician Admitting clinician: Belem Adorno Attending physician on admission: Tony Rosario Consults: 08/17/23 23:22 Addiction Medicine Routine Consulting Provider: Addiction Covering Reason for consultation: methamphetamine abuse/intoxication Consult to Nephrology Routine Consulting Provider: Jeremiah Ag Reason for consultation: jonathan, proteinuria, elevated ck Attending physician on discharge: Tony Rosario Discharging clinician: Belem Adorno DS: Diagnosis Discharge Diagnosis (1) Schizoaffective disorder: Status: Inactive (2) Substance-induced psychotic disorder: Status: Resolved (3) Borderline personality disorder: Status: Acute (4) PTSD (post-traumatic stress disorder): Status: Acute DS: Medications Discharge Medications Home Medications: Previous Rx's Medication Instructions Recorded divalproex 250 mg tablet,delayed 250 mg PO TID #90 tabs 08/28/23 release docusate sodium 100 mg capsule 100 mg PO DAILY PRN Constipation 08/28/23 #30 caps olanzapine 15 mg tablet 15 mg PO BID #60 tabs 08/28/23 prazosin 1 mg capsule 2 mg PO BEDTIME #30 caps 08/28/23 trazodone 50 mg tablet 50 mg PO BEDTIME MRX1 PRN Insomnia 08/28/23 #60 tabs Mental Status Exam Mental Status Exam Patient Appearance: Appropriate Patient Orientation: Person, Place, Time and Situation Level of Consciousness: Alert Patient Behavior: Talkative and Good Eye Contact Mood Description: Appropriate and Apprehensive Affect Description: Apprehensive Patient Cognition Impaired: No Ability to Follow Directions: Good Speech Pattern: Spontaneous Speech Memory Description: Episodic Impaired Hallucinations: None Delusions: Not Present Perceptual Disturbances: Depersonalization and Derealization Thought Process: Intact and Goal Oriented Thought Content: positive for Intact and positive for Goal Oriented Depressive Symptoms: Increased Anxiety Judgement: Good Data Data Completed and Pending Completed studies during hospitalization [Text1]: 08/24/23 08:00 WBC 6.9 RBC 4.62 Hgb 14.3 Hct 42.4 MCV 91.8 MCH 31.0 MCHC 33.7 RDW 13.0 Plt Count 282 D MPV 10.4 Immature Gran % (Auto) 0.9 H Neut % (Auto) 44.8 L Lymph % (Auto) 43.2 H Giles % (Auto) 7.1 Eos % (Auto) 3.6 Baso % (Auto) 0.4 Lymph # (Auto) 3.0 Giles # (Auto) 0.5 Eos # (Auto) 0.3 Baso # (Auto) 0.0 Abs Immat Gran (auto) 0.06 H Absolute Neuts (auto) 3.1 Absolute Nucleated RBC 0.000 Nucleated RBC % (auto) 0.0 Valproic Acid 67.8 DS: Summary Hospital Course Hospital Course: Admission to adult psychiatry for exacerbation of schizoaffective disorder, bipolar type, PTSD, substance induced psychosis. Pt transferred to from medicine s/p medication OD. Pt identifies SI with intent as he has just learned from his landlord that a police report was filed for actions he had taken when ill-sending inappropriate pictures to all of his [employer] contacts when psychotic. Medications were re-evaluated and adjusted. Pt's partner is a strong support and supports his need for ongoing treatment. Pt agreed to and was accepted to [facility] for treatment. He is accepted by [facility] and will continue with case management support while at [facility]. Time spent discussing smoking cessation with patient: 3 to 10 minutes Status at Discharge Functional status at discharge: independent ambulation Overall status at discharge: patient is progressing back to baseline Time Spent with Patient Time attestation: Total time managing care of this patient today ____ minutes. Time spent: Greater than 30 minutes Discharge Plan Discharge Anticipated Discharge Date/Time: 08/29/23 12:46 Patient Disposition: Xfer Inpatient Rehab Fac Discharge Diagnosis: PTSD Schizoaffective Disorder, Bipolar Type Substance Induced Psychotic Disorder Polysubstance Use Disorder Referrals: [facility] ([facility]): Shaista Ward (therapy) [Other] - 09/05/23 11:00 am (Hospital Discharge Appointment Initial Diagnostic Evaluation with therapist Appointment is in person at [facility] in [place].) [facility] (Psychiatry) [Other] - 09/19/23 2:00 pm (Hospital Discharge Appointment. Psychiatric evaluation for medication management. Appointment in office at [facility] in [place]) Physician,Unknown J [Primary Care Provider] - 1 Week Discharge Medications: New divalproex 250 mg Tablet,Delayed Release (Dr/Ec) 250 mg PO TID Qty: 90 0RF trazodone 50 mg Tablet 50 mg PO BEDTIME MRX1 PRN (Reason: Insomnia) Qty: 60 0RF prazosin 1 mg Capsule 2 mg PO BEDTIME Qty: 30 0RF Protocol: Hold for SBP< HOLD for SBP < : 90 docusate sodium 100 mg Capsule 100 mg PO DAILY PRN (Reason: Constipation) Qty: 30 0RF olanzapine 15 mg tablet 15 mg PO BID Qty: 60 0RF Discharge Orders: Discharge Order (Routine); Ordered 08/17/23 Ordered By: Belem Adorno Diet: Advance to usual diet Activity on Discharge: As tolerated Stand Alone Forms: Patient Portal Discharge page, Community Support Care Plan Goals: Mood and Behavioral Stabilization Sobriety Health Concerns: Mood and Behavioral Stabilization Sobriety Plan of Treatment: [facility] admission Take medications as directed Attend scheduled appointments Assessment: Transfer to [facility] Discharge Date/Time: 08/29/23 10:15
== END 2023-08-29 10:15 | DRG 885 ==
PROVIDERS: Admitting Provider Psychiatry & Neurology Psychiatry; Visit Provider Clinical Nurse Specialist Psychiatric/Mental Health, Adult
DX: F25.9 Schizoaffective disorder, unspecified (principal); R45.851 Suicidal ideations; Z59.02 Unsheltered homelessness; F19.959 Other psychoactive substance use, unspecified with psychoactive substance-induced psychotic disorder, unspecified; F43.10 Post-traumatic stress disorder, unspecified; F64.0 Transsexualism; F60.3 Borderline personality disorder; F17.210 Nicotine dependence, cigarettes, uncomplicated; Z71.6 Tobacco abuse counseling; Z91.040 Latex allergy status; Z79.899 Other long term (current) drug therapy
CPT/HCPCS: 36415; 80061; 80164; 82607; 82746; 83036; 83735; 84439; 84443; 85025

== ENCOUNTER → 2023-08-17 23:22 | Outpatient (BNV) | payer MEDICARE, MEDICAID, SELFPAY | PROVIDERS: Admitting Provider Psychiatry & Neurology Psychiatry; Visit Provider Clinical Nurse Specialist Psychiatric/Mental Health, Adult | DX: F60.3 Borderline personality disorder (principal); F25.0 Schizoaffective disorder, bipolar type; F19.959 Other psychoactive substance use, unspecified with psychoactive substance-induced psychotic disorder, unspecified; F43.11 Post-traumatic stress disorder, acute | CPT/HCPCS: 90792; 99231; 99232; 99239 ==